=== PATIENT | female | born 1940 | race Caucasian/White ===

== ENCOUNTER 2016-06-08 22:09 | Emergency (ER) | payer OTHER ==
[~2016-06-08] VITALS: Ht 170.2 cm; Wt 77.1 kg
[~2016-06-08 22:09] MED LIST: HYDR50TA69; LOSA100T22; SERT-135
[2016-06-09] MEDS ORDERED: HYDROmorphone HCL 2 MG/ML VL IV ONE (00:30)
[2016-06-09] MEDS ORDERED: ONDANSETRON HCL 4 MG/2 ML VIAL IV ONE (00:30)
[2016-06-09 04:53] VITALS: BP 119/52
== END 2016-06-09 05:25 | disposition home or self-care (01) ==
LOC: EDBD 22:09 → ER 22:12
DX: S76.011A Strain of muscle, fascia and tendon of right hip, initial encounter (principal); J45.909 Unspecified asthma, uncomplicated; E78.5 Hyperlipidemia, unspecified; J44.9 Chronic obstructive pulmonary disease, unspecified; I10 Essential (primary) hypertension; Z96.641 Presence of right artificial hip joint; X58.XXXA Exposure to other specified factors, initial encounter; Y93.89 Activity, other specified; Y99.8 Other external cause status; Y92.89 Other specified places as the place of occurrence of the external cause
CPT/HCPCS: 73502; 96374; 96375; 99284; J1170; J2405

== ENCOUNTER → 2017-06-19 | Outpatient (CLI) | payer OTHER ==
[~2017-06-19] MED LIST changes: +FURO40TA4 PO; -HYDR50TA69; +HYDR50TA69 PO; +PANT40TA2 PO; -SERT-135; +SERT-135 PO
[2017-06-19 09:24] LABS: Basophils # (auto) 0 uL; Basophils % (auto) 0.6 % (0.0-2.0); Eosinophils # (auto) 0.1 uL; Eosinophils % (auto) 1.9 % (0.0-7.0); Hematocrit 39.6 % (36.0-46.0); Hemoglobin 13.7 g/dL (12.2-16.2); Lymphocytes # (auto) 1.2 uL; Lymphocytes % (auto) 30.2 % (10.0-50.0); Mean Corpuscular Hemoglobin 32.3 pg (28.0-32.0); Mean Corpuscular Hgb Conc. 34.4 g/dL (32.0-36.0); Mean Corpuscular Volume 93.7 fL (80.0-100.0); Monocytes # (auto) 0.4 uL; Monocytes % (auto) 10.6 % (0.0-12.0); Neutrophils # (auto) 2.2 uL; Neutrophils % (auto) 56.7 % (37.0-80.0); Platelet Count (auto) 209 10^3/uL (140-450); Red Blood Cells 4.23 10^6/uL (4.0-5.20); Red Cell Distribution Width 13.4 % (11.8-14.3); White Blood Cell 3.9 10^3/uL (4.4-10.8)
[2017-06-19 10:00] LABS: Urine Bacteria FEW /hpf (None Seen); Urine Blood Negative /uL (Negative); Urine Mucus FEW (None Seen); Urine Specific Gravity 1.012 (1.001-1.035); Urine WBC 2 /hpf (0 - 5)
[2017-06-19 10:41] LABS: Albumin 3.9 g/dL (3.4-5.0); BUN/Creatinine Ratio 25.9; Bilirubin, Total 1.1 mg/dL (0.2-1.0); Calcium 8.8 mg/dL (8.5-10.1); Total Protein 7.8 g/dL (6.4-8.2)
[2017-06-19 10:47] LABS: Potassium 2.7 mmol/L (3.5-5.1)
[2017-06-19 11:25] LABS: Free T4 (Free Thyroxine) 1.06 ng/dL (0.89-1.76)
== END | disposition home or self-care (01) ==
LOC: LAB 08:59
PROVIDERS: ATTEND Internal Medicine
DX: J44.9 Chronic obstructive pulmonary disease, unspecified (principal); I10 Essential (primary) hypertension
CPT/HCPCS: 36415; 80053; 80061; 81001; 82043; 82607; 83615; 84439; 84443; 85025; 85652

== ENCOUNTER 2017-06-20 09:15 | Inpatient (IN) | payer OTHER ==
[~2017-06-20] VITALS: Ht 157.5 cm; Wt 65.9 kg
[~2017-06-20 09:15] MED LIST changes: -FURO40TA4 PO; -PANT40TA2 PO
[2017-06-20 10:23] LABS: Basophils # (auto) 0 uL; Basophils % (auto) 0.6 % (0.0-2.0); Eosinophils # (auto) 0 uL; Eosinophils % (auto) 0.8 % (0.0-7.0); Hematocrit 40.8 % (36.0-46.0); Hemoglobin 13.9 g/dL (12.2-16.2); Lymphocytes # (auto) 1.3 uL; Lymphocytes % (auto) 21.1 % (10.0-50.0); Mean Corpuscular Hemoglobin 32.1 pg (28.0-32.0); Mean Corpuscular Volume 94.2 fL (80.0-100.0); Monocytes # (auto) 0.5 uL; Monocytes % (auto) 8.4 % (0.0-12.0); Neutrophils # (auto) 4.1 uL; Neutrophils % (auto) 69.1 % (37.0-80.0); Nucleated Red Blood Cells % 0.1 %; Platelet Count (auto) 242 10^3/uL (140-450); Red Blood Cells 4.33 10^6/uL (4.0-5.20); Red Cell Distribution Width 13.5 % (11.8-14.3)
[2017-06-20 10:37] LABS: INR 0.92 (0.9-1.15); Partial Thromboplastin Time 25.9 sec (22.64-33.71)
[2017-06-20 10:40] LABS: Alanine Aminotransferase 53 U/L (13-56); Albumin 3.9 g/dL (3.4-5.0); Alkaline Phosphatase 173 U/L (45-117); Anion Gap 13 (5-15); Aspartate Aminotransferase 45 U/L (15-37); BUN/Creatinine Ratio 29.1; Bilirubin, Total 0.9 mg/dL (0.2-1.0); Blood Urea Nitrogen 46 mg/dL (7-18); Calcium 8.6 mg/dL (8.5-10.1); Carbon Dioxide 25 mmol/L (21-32); Chloride 96 mmol/L (98-107); GFR African American 41 mL/min; GFR Non-African American 34 mL/min; Glucose 132 mg/dL (74-106); Magnesium 2.6 mg/dL (1.6-2.6); Sodium 134 mmol/L (136-145); Total Protein 7.9 g/dL (6.4-8.2)
[2017-06-20 10:42] LABS: Potassium 2.5 mmol/L (3.5-5.1)
[2017-06-20] MEDS ORDERED: SODIUM CHLORIDE 0.9% 1,000 ML IV ONE (11:14)
[2017-06-20] MEDS ORDERED: POTASSIUM CHL 20 Meq TABLET PO ONE ×2 (11:15→15:45)
[2017-06-20] MEDS ORDERED: metroNIDAZOLE 500MG/100ML 100 ML IV ONE (14:45)
[2017-06-20] MEDS ORDERED: MORPHINE SULFATE 10 MG/ML INJ 1ML SDV IV PRN (15:45)
[2017-06-20] MEDS ORDERED: cefTRIAXone 1GM/10ml IVPUSH 10 ML IV ONE (15:45)
[2017-06-20] MEDS ORDERED: LORazepam 0.5 MG TAB PO PRN (15:45)
[2017-06-20] MEDS ORDERED: HYDROcodone-ACET 5/325MG TAB PO PRN (15:45)
[2017-06-20] MEDS ORDERED: TEMAZEPAM 15 MG CAP PO PRN (15:45)
[2017-06-20] MEDS ORDERED: DEXTROSE (50%) 50ML SYRG IV PRN (15:45)
[2017-06-20] MEDS ORDERED: NITROGLYCERIN 0.4 MG SL TAB SL PRN (15:45)
[2017-06-20] MEDS ORDERED: PROMETHAZINE HCL 25 MG/ML 1ML IV PRN (15:45)
[2017-06-20] MEDS ORDERED: ACETAMINOPHEN 500 MG TAB PO PRN (15:45)
[2017-06-20] MEDS ORDERED: MORPHINE SULF INJ 2 MG/ML SYRINGE 1ML IV PRN (15:45)
[2017-06-20 16:14] LABS: CRP High Sensitivity 0.61 mg/dL (< 0.3)
[2017-06-20] MEDS: metroNIDAZOLE 500MG/100ML 100 ML IV SCH ×2 (16:42→23:56)
[2017-06-20] MEDS: SOD CHL 0.9%/ KCL 40MEQ 1,000 ML IV SCH (17:02)
[2017-06-20] MEDS: FAMOTIDINE (10MG/ML) 2ML VL IV SCH (17:03)
[2017-06-20] MEDS: POTASSIUM CHL 20MEQ/100ML 100 ML IV SCH ×3 (17:51→23:48)
[2017-06-20 18:37] LABS: Urine Bacteria FEW /hpf (None Seen); Urine Blood Negative /uL (Negative); Urine Mucus FEW (None Seen); Urine Specific Gravity 1.014 (1.001-1.035); Urine WBC 4 /hpf (0 - 5)
[2017-06-20] MEDS: ACCU-CHEK COMFORT CURVE STRIP VI SCH (18:45)
[2017-06-20] MEDS ORDERED: PANT40TA2 PO (20:19)
[2017-06-20] MEDS ORDERED: FURO40TA4 PO (20:19)
[2017-06-20 22:00] VITALS: BP 117/58
[2017-06-21] MEDS: ACCU-CHEK COMFORT CURVE STRIP VI SCH ×3 (00:02→12:00)
[2017-06-21] MEDS ORDERED: POTASSIUM CHL 20MEQ/100ML 100 ML IV ONE (02:29)
[2017-06-21] MEDS: POTASSIUM CHL 20MEQ/100ML 100 ML IV SCH (02:30)
[2017-06-21] MEDS: SOD CHL 0.9%/ KCL 40MEQ 1,000 ML IV SCH ×2 (03:05→11:55)
[2017-06-21 05:00] VITALS: BP 109/56
[2017-06-21] MEDS: metroNIDAZOLE 500MG/100ML 100 ML IV SCH ×2 (05:55→12:18)
[2017-06-21 07:03] LABS: Albumin 2.8 g/dL (3.4-5.0); BUN/Creatinine Ratio 24.8; Bilirubin, Total 0.6 mg/dL (0.2-1.0); Calcium 7.3 mg/dL (8.5-10.1); Total Protein 5.6 g/dL (6.4-8.2)
[2017-06-21 07:04] LABS: Cholesterol 163 mg/dL (< 200); HDL Cholesterol 76 mg/dL (40-59); LDL Cholesterol 91 mg/dL (< 100); Triglycerides 78 mg/dL (< 150)
[2017-06-21 07:07] LABS: Potassium 5.6 mmol/L (3.5-5.1)
[2017-06-21] MEDS ORDERED: HYOSCYAMINE SULF 0.125 MG TAB PO PRN (08:45)
[2017-06-21] MEDS ORDERED: cefTRIAXone 1GM/10ml IVPUSH 10 ML IV SCH (09:00)
[2017-06-21 09:43] VITALS: BP 106/63
[2017-06-21] MEDS: FAMOTIDINE (10MG/ML) 2ML VL IV SCH (09:43)
[2017-06-21] MEDS ORDERED: ENOXAPARIN SOD 40 MG/0.4 ML SYRINGE SC SCH (10:00)
[2017-06-21 11:43] VITALS: BP 123/56
== END 2017-06-21 16:30 | disposition home or self-care (01) | DRG 445 ==
LOC: ER 09:15 → TELE 09:16 → TELE-WESTW 18:31
PROVIDERS: ADMIT Internal Medicine; ATTEND Family Medicine
DX: K80.20 Calculus of gallbladder without cholecystitis without obstruction (principal); E87.1 Hypo-osmolality and hyponatremia; E11.21 Type 2 diabetes mellitus with diabetic nephropathy; E11.65 Type 2 diabetes mellitus with hyperglycemia; E86.0 Dehydration; K52.9 Noninfective gastroenteritis and colitis, unspecified; K57.30 Diverticulosis of large intestine without perforation or abscess without bleeding; E78.5 Hyperlipidemia, unspecified; F32.9 Major depressive disorder, single episode, unspecified; E87.6 Hypokalemia; F41.9 Anxiety disorder, unspecified; I10 Essential (primary) hypertension; I70.0 Atherosclerosis of aorta; Z80.0 Family history of malignant neoplasm of digestive organs; Z82.49 Family history of ischemic heart disease and other diseases of the circulatory system; Z83.3 Family history of diabetes mellitus; Z85.038 Personal history of other malignant neoplasm of large intestine
CPT/HCPCS: 36415; 71046; 74176; 76705; 80053; 80061; 81001; 82150; 82270; 82962; 83036; 83690; 83735; 84132; 84443; 84484; 85025; 85610; 85652; 85730; 86141; 87493; 93005; 96361; 96365; 96367; 96375; J3480; J3490

== ENCOUNTER → 2018-06-05 | Outpatient (CLI) | payer OTHER ==
[~2018-06-05] MED LIST changes: +FURO40TA4 PO; -LOSA100T22; +PANT40TA2 PO
[2018-06-05 10:40] LABS: Basophils # (auto) 0.1 uL; Eosinophils # (auto) 0.1 uL; Monocytes # (auto) 0.5 uL
[2018-06-05 10:42] LABS: Basophils % (auto) 1.2 % (0.0-2.0); Eosinophils % (auto) 1.4 % (0.0-7.0); Hemoglobin 14.6 g/dL (12.2-16.2); Lymphocytes # (auto) 1.6 uL; Lymphocytes % (auto) 30.2 % (10.0-50.0); Mean Corpuscular Hemoglobin 34.7 pg (28.0-32.0); Mean Corpuscular Hgb Conc. 34.7 g/dL (32.0-36.0); Mean Corpuscular Volume 100.1 fL (80.0-100.0); Monocytes % (auto) 9.3 % (0.0-12.0); Neutrophils # (auto) 3.1 uL; Neutrophils % (auto) 57.9 % (37.0-80.0); Platelet Count (auto) 250 10^3/uL (140-450); Red Cell Distribution Width 13.5 % (11.8-14.3); White Blood Cell 5.3 10^3/uL (4.4-10.8)
[2018-06-05 10:56] LABS: Urine Bacteria FEW /hpf (None Seen); Urine Blood Negative /uL (Negative); Urine Specific Gravity 1.014 (1.001-1.035); Urine WBC <1 /hpf (0 - 5)
[2018-06-05 11:12] LABS: Albumin 3.9 g/dL (3.4-5.0); BUN/Creatinine Ratio 17.7; Calcium 8.8 mg/dL (8.5-10.1); Uric Acid 8.9 mg/dL (2.6-6.0)
[2018-06-05 11:16] LABS: Bilirubin, Total 1.3 mg/dL (0.2-1.0); Total Protein 7.6 g/dL (6.4-8.2)
[2018-06-05 11:26] LABS: Potassium 2.6 mmol/L (3.5-5.1)
== END | disposition home or self-care (01) ==
LOC: LAB 10:19
PROVIDERS: ATTEND Internal Medicine
DX: J44.9 Chronic obstructive pulmonary disease, unspecified (principal); I10 Essential (primary) hypertension; M25.50 Pain in unspecified joint
CPT/HCPCS: 36415; 80053; 80061; 81001; 82043; 84439; 84443; 84550; 85025; 85652; 86038; 86431

== ENCOUNTER → 2018-06-07 | Outpatient (CLI) | payer OTHER ==
[2018-06-07 10:19] LABS: Magnesium 2.1 mg/dL (1.6-2.6); Potassium 3.8 mmol/L (3.5-5.1)
== END | disposition home or self-care (01) ==
LOC: LAB 09:48
PROVIDERS: ATTEND Internal Medicine
DX: E87.6 Hypokalemia (principal)
CPT/HCPCS: 36415; 83735; 84132

== ENCOUNTER → 2018-06-26 | Outpatient (CLI) | payer OTHER ==
[2018-06-26 13:57] LABS: Basophils # (auto) 0 uL; Eosinophils # (auto) 0 uL; Hemoglobin 14.6 g/dL (12.2-16.2); Lymphocytes # (auto) 1.1 uL; Mean Corpuscular Hgb Conc. 35.1 g/dL (32.0-36.0); Monocytes # (auto) 0.5 uL
[2018-06-26 13:59] LABS: Basophils % (auto) 0.6 % (0.0-2.0); Eosinophils % (auto) 0.6 % (0.0-7.0); Hematocrit 41.6 % (36.0-46.0); Lymphocytes % (auto) 22.2 % (10.0-50.0); Mean Corpuscular Hemoglobin 35.7 pg (28.0-32.0); Mean Corpuscular Volume 101.6 fL (80.0-100.0); Monocytes % (auto) 10.6 % (0.0-12.0); Neutrophils # (auto) 3.4 uL; Platelet Count (auto) 227 10^3/uL (140-450); Red Blood Cells 4.09 10^6/uL (4.0-5.20); Red Cell Distribution Width 13.4 % (11.8-14.3); White Blood Cell 5.1 10^3/uL (4.4-10.8)
[2018-06-26 14:09] LABS: Potassium 3.4 mmol/L (3.5-5.1)
[2018-06-26 14:16] LABS: Albumin 4.1 g/dL (3.4-5.0); BUN/Creatinine Ratio 15.3; Bilirubin, Total 0.9 mg/dL (0.2-1.0); Calcium 9.1 mg/dL (8.5-10.1); Magnesium 2.1 mg/dL (1.6-2.6); Total Protein 7.8 g/dL (6.4-8.2)
== END | disposition home or self-care (01) ==
LOC: LAB 13:23
PROVIDERS: ATTEND Internal Medicine
DX: I11.0 Hypertensive heart disease with heart failure (principal); I50.9 Heart failure, unspecified
CPT/HCPCS: 36415; 80053; 83735; 83880; 85025

== ENCOUNTER → 2018-07-03 | Outpatient (CLI) | payer OTHER ==
[2018-07-03 13:30] LABS: Albumin 3.5 g/dL (3.4-5.0); Calcium 8.7 mg/dL (8.5-10.1); Potassium 4.5 mmol/L (3.5-5.1)
[2018-07-03 13:33] LABS: BUN/Creatinine Ratio 16.5; Bilirubin, Total 0.7 mg/dL (0.2-1.0); Total Protein 6.9 g/dL (6.4-8.2)
== END | disposition home or self-care (01) ==
LOC: LAB 12:20
PROVIDERS: ATTEND Internal Medicine
DX: R73.9 Hyperglycemia, unspecified (principal); I12.9 Hypertensive chronic kidney disease with stage 1 through stage 4 chronic kidney disease, or unspecified chronic kidney disease; N18.3 Chronic kidney disease, stage 3 (moderate)
CPT/HCPCS: 36415; 80053; 83036

== ENCOUNTER → 2018-07-09 | Outpatient (CLI) | payer OTHER | END | disposition home or self-care (01) | LOC: LAB 13:14 | PROVIDERS: ATTEND Internal Medicine | DX: J44.1 Chronic obstructive pulmonary disease with (acute) exacerbation (principal) | CPT/HCPCS: 87804 ==

== ENCOUNTER → 2018-07-09 | Outpatient (CLI) | payer OTHER | END | disposition home or self-care (01) | LOC: RT 12:22 | PROVIDERS: ATTEND Internal Medicine | DX: J44.1 Chronic obstructive pulmonary disease with (acute) exacerbation (principal) | CPT/HCPCS: 36600; 82805 ==

== ENCOUNTER → 2018-07-25 | Outpatient (CLI) | payer OTHER | END | disposition home or self-care (01) | LOC: XYW 11:08 | PROVIDERS: ATTEND Internal Medicine | DX: I50.9 Heart failure, unspecified (principal); J44.9 Chronic obstructive pulmonary disease, unspecified | CPT/HCPCS: 93306 ==

== ENCOUNTER → 2018-09-25 | Outpatient (CLI) | payer OTHER ==
[~2018-09-25] VITALS: Ht 157.5 cm; Wt 70.3 kg
[~2018-09-25] MED LIST changes: +ADENOSINE 59 MG in GIVE UN-DILUTED 0 ML IV STA; +ALBUTEROL SULF 2.5 MG/0.5ML(0.5%) NEB SOLN NEB ONE
== END | disposition home or self-care (01) ==
LOC: XY 08:35
PROVIDERS: ATTEND Internal Medicine
DX: I11.0 Hypertensive heart disease with heart failure (principal); I50.33 Acute on chronic diastolic (congestive) heart failure
CPT/HCPCS: 78452; 93017; 94640; A9500; J0153; J7611

== ENCOUNTER 2018-11-26 12:01 | Emergency (ER) | payer OTHER ==
[~2018-11-26] VITALS: Ht 157.5 cm; Wt 70.3 kg
[~2018-11-26 12:01] MED LIST changes: -ADENOSINE 59 MG in GIVE UN-DILUTED 0 ML IV STA; -ALBUTEROL SULF 2.5 MG/0.5ML(0.5%) NEB SOLN NEB ONE
[2018-11-26 13:02] VITALS: BP 145/89
[2018-11-26] MEDS ORDERED: KETOROLAC TROMETH 15 mg/ml 1ML VL IM ONE (13:15)
[2018-11-26 14:26] LABS: Urine Bacteria NONE SEEN /hpf (None Seen); Urine Blood Negative /uL (Negative); Urine Specific Gravity 1.008 (1.001-1.035); Urine WBC 1 /hpf (0 - 5)
== END 2018-11-26 14:17 | disposition home or self-care (01) ==
LOC: ER 12:04
DX: S22.41XA Multiple fractures of ribs, right side, initial encounter for closed fracture (principal); J44.9 Chronic obstructive pulmonary disease, unspecified; K21.9 Gastro-esophageal reflux disease without esophagitis; E78.5 Hyperlipidemia, unspecified; I10 Essential (primary) hypertension; W19.XXXA Unspecified fall, initial encounter; Y93.89 Activity, other specified; Y99.8 Other external cause status; Y92.89 Other specified places as the place of occurrence of the external cause
CPT/HCPCS: 71111; 81001; 93005; 96372; 99284; J1885

== ENCOUNTER → 2019-01-21 | Outpatient (CLI) | payer OTHER ==
[~2019-01-21] MED LIST changes: -SERT-135 PO; +SERT100T PO
[2019-01-21 09:46] LABS: Basophils # (auto) 0.1 uL; Basophils % (auto) 1.3 % (0.0-2.0); Eosinophils # (auto) 0.4 uL; Lymphocytes # (auto) 1.3 uL; Mean Corpuscular Volume 100.7 fL (80.0-100.0); Red Cell Distribution Width 13.7 % (11.8-14.3)
[2019-01-21 09:48] LABS: Eosinophils % (auto) 8.2 % (0.0-7.0); Hematocrit 42.3 % (36.0-46.0); Hemoglobin 14.7 g/dL (12.2-16.2); Lymphocytes % (auto) 29.1 % (10.0-50.0); Mean Corpuscular Hgb Conc. 34.7 g/dL (32.0-36.0); Monocytes # (auto) 0.4 uL; Monocytes % (auto) 8.6 % (0.0-12.0); Neutrophils # (auto) 2.4 uL; Neutrophils % (auto) 52.8 % (37.0-80.0); Nucleated Red Blood Cells % 0.1 %; Platelet Count (auto) 194 10^3/uL (140-450); White Blood Cell 4.6 10^3/uL (4.4-10.8)
[2019-01-21 10:53] LABS: BUN/Creatinine Ratio 15.3; Calcium 9.4 mg/dL (8.5-10.1)
[2019-01-21 10:56] LABS: Bilirubin, Total 1.2 mg/dL (0.2-1.0); Total Protein 7.4 g/dL (6.4-8.2)
== END | disposition home or self-care (01) ==
LOC: LAB 08:55
PROVIDERS: ATTEND Internal Medicine
DX: J44.9 Chronic obstructive pulmonary disease, unspecified (principal); E78.00 Pure hypercholesterolemia, unspecified
CPT/HCPCS: 36415; 80053; 80061; 82785; 85025

== ENCOUNTER 2019-01-31 01:00 | Inpatient (IN) | payer OTHER | END 2019-02-07 15:04 | disposition home health service (06) | LOC: WEST WING 02-06 09:47 → ER 01:00 → TELE 01:01 → TELE-WESTW 06:33 | DX: J44.1 Chronic obstructive pulmonary disease with (acute) exacerbation (principal); J96.20 Acute and chronic respiratory failure, unspecified whether with hypoxia or hypercapnia; E78.5 Hyperlipidemia, unspecified; I10 Essential (primary) hypertension; K21.9 Gastro-esophageal reflux disease without esophagitis ==

== ENCOUNTER → 2019-06-25 | Outpatient (CLI) | payer OTHER ==
[~2019-06-25] MED LIST changes: +ASPI81CH43 PO; +ATOR20TA50 PO; +HYDR-2691 PO; +PANT40T PO; +POTA-220 PO
[2019-06-25 11:56] LABS: Potassium 3.8 mmol/L (3.5-5.1)
[2019-06-25 12:04] LABS: Albumin 3.9 g/dL (3.4-5.0); BUN/Creatinine Ratio 14.7; Bilirubin, Total 0.7 mg/dL (0.2-1.0); Calcium 9.6 mg/dL (8.5-10.1); Total Protein 7.6 g/dL (6.4-8.2)
== END | disposition home or self-care (01) ==
LOC: LAB 10:40
PROVIDERS: ATTEND Internal Medicine
DX: J44.9 Chronic obstructive pulmonary disease, unspecified (principal); E78.00 Pure hypercholesterolemia, unspecified
CPT/HCPCS: 36415; 80053; 80061; 82607

== ENCOUNTER 2019-07-09 11:27 | Inpatient (IN) | payer OTHER ==
[~2019-07-09] VITALS: Ht 157.5 cm; Wt 68.3 kg
[2019-07-09] MEDS ORDERED: SODIUM CHLORIDE 0.9% 1,000 ML IV ONE (11:36)
[2019-07-09] MEDS ORDERED: IPRATROPIUM BROM 0.5 MG/2.5ML INH SOL NEB ONE (11:45)
[2019-07-09] MEDS ORDERED: ALBUTEROL SULF 2.5 MG/0.5ML(0.5%) NEB SOLN NEB ONE (11:45)
[2019-07-09] MEDS ORDERED: methylPREDNISolone SOD SUCC 125 MG/2 ML VL IV ONE (11:45)
[2019-07-09 12:02] LABS: Basophils # (auto) 0.1 uL; Basophils % (auto) 1.1 % (0.0-2.0); Eosinophils # (auto) 0.5 uL; Eosinophils % (auto) 6.4 % (0.0-7.0); Hematocrit 43.1 % (36.0-46.0); Hemoglobin 14.4 g/dL (12.2-16.2); Lymphocytes # (auto) 1.8 uL; Lymphocytes % (auto) 21.3 % (10.0-50.0); Mean Corpuscular Hemoglobin 31.7 pg (28.0-32.0); Mean Corpuscular Hgb Conc. 33.3 g/dL (32.0-36.0); Mean Corpuscular Volume 95.1 fL (80.0-100.0); Monocytes # (auto) 0.7 uL; Monocytes % (auto) 8.7 % (0.0-12.0); Neutrophils # (auto) 5.3 uL; Neutrophils % (auto) 62.5 % (37.0-80.0); Platelet Count (auto) 235 10^3/uL (140-450); Red Blood Cells 4.53 10^6/uL (4.0-5.20); Red Cell Distribution Width 13.9 % (11.8-14.3); White Blood Cell 8.5 10^3/uL (4.4-10.8)
[2019-07-09 12:27] LABS: Potassium 4.3 mmol/L (3.5-5.1)
[2019-07-09 12:33] LABS: Albumin 4.2 g/dL (3.4-5.0); BUN/Creatinine Ratio 13.4; Calcium 9.6 mg/dL (8.5-10.1); Magnesium 2.2 mg/dL (1.6-2.6); Total Protein 7.6 g/dL (6.4-8.2)
[2019-07-09 13:08] LABS: Urine WBC None Seen /hpf (0 - 5)
[2019-07-09 13:17] LABS: Urine Bacteria NONE SEEN /hpf (None Seen); Urine Blood Negative /uL (Negative); Urine Hyaline Cast FEW /lpf (0 - 2); Urine Specific Gravity 1.008 (1.001-1.035)
[2019-07-09] MEDS ORDERED: LOSA-69 (15:46)
[2019-07-09] MEDS ORDERED: TORS10TA12 (15:46)
[2019-07-09] MEDS ORDERED: ALBU108A5 (15:46)
[2019-07-09] MEDS ORDERED: ACETAMINOPHEN 500 MG TAB PO PRN (16:15)
[2019-07-09] MEDS ORDERED: ASPirin 81 mg TAB PO ONE (16:15)
[2019-07-09] MEDS ORDERED: hydrALAZINE HCL 20 MG/ML VL IV PRN (16:15)
[2019-07-09] MEDS ORDERED: ONDANSETRON HCL 4 MG/2 ML VIAL IV PRN (16:15)
[2019-07-09] MEDS ORDERED: HYDROcodone-ACET 5/325MG TAB PO PRN (16:15)
[2019-07-09] MEDS ORDERED: MORPHINE SULF INJ 2 MG/ML SYRINGE 1ML IV PRN ×2 (16:15)
[2019-07-09] MEDS ORDERED: NITROGLYCERIN 0.4 MG SL TAB SL PRN (16:15)
--- NOTE | 2019-07-09 18:54 | NUR ---
Telemetry admit from ER YOSELINFREDRICK admitted to Telemetry unit after SBAR received. Patient oriented to SANDRITA HOPKINS, primary RN, unit, room, bed, and unit policies regarding patient care and visiting hours. Patient now on continuous telemetry monitoring, tele box # 26. Patient weighed by bedscale and encouraged to call if they need something. All questions and concerns addressed, patient verbalized understanding. Patient has expiratory wheezing with tachypnea. Voice is clear when speaking. She is alert and oriented. Ambulatory. No skin issues. Currently sitting on the side of the bed eating dinner.
[2019-07-09 19:00] VITALS: BP 161/97
--- NOTE | 2019-07-09 19:05 | NUR ---
Opening Shift Note Assumed care of patient, awake and alert. No pain. Wheezing audible upon breathing, O2 saturation at 94% at this time on room air. Will contact RT regarding breathing treatment. Instructed on POC and to call for assist PRN, will continue to monitor for changes Q1hr and PRN. Side rails up x2. Bed locked in lowest position. Call light within reach.
--- NOTE | 2019-07-09 19:50 | NUR ---
RT at bedside for a breathing treatment.
[2019-07-09] MEDS: ALBUTEROL SULF 2.5 MG/0.5ML(0.5%) NEB SOLN NEB SCH ×2 (19:51→22:22)
[2019-07-09] MEDS: IPRATROPIUM BROM 0.5 MG/2.5ML INH SOL NEB SCH ×2 (19:51→22:22)
[2019-07-09] MEDS: BUDESONIDE (INHALATION) 0.5 MG/2 ML NEB NEB SCH (19:52)
[2019-07-09 21:16] VITALS: BP 161/97
[2019-07-09 21:52] VITALS: BP 129/76
[2019-07-09] MEDS ORDERED: TORS10TA12 PO (22:04)
[2019-07-09] MEDS: ATORVASTATIN 20 MG TAB PO SCH (22:26)
[2019-07-09] MEDS: methylPREDNISolone SOD SUCC 40 MG/ML VL IV SCH (22:26)
[2019-07-09] MEDS ORDERED: TEMAZEPAM 15 MG CAP PO ONE (22:45)
[2019-07-09] MEDS ORDERED: ALBUTEROL SULF 2.5 MG/0.5ML(0.5%) NEB SOLN NEB PRN (22:45)
[2019-07-10 05:00] VITALS: BP 132/72
[2019-07-10 06:12] LABS: Basophils # (auto) 0 uL; Basophils % (auto) 0.1 % (0.0-2.0); Eosinophils # (auto) 0 uL; Hematocrit 36.8 % (36.0-46.0); Hemoglobin 12.6 g/dL (12.2-16.2); Lymphocytes # (auto) 0.3 uL; Lymphocytes % (auto) 7.5 % (10.0-50.0); Mean Corpuscular Hemoglobin 32.5 pg (28.0-32.0); Mean Corpuscular Hgb Conc. 34.1 g/dL (32.0-36.0); Mean Corpuscular Volume 95.4 fL (80.0-100.0); Monocytes # (auto) 0.1 uL; Monocytes % (auto) 1.3 % (0.0-12.0); Neutrophils % (auto) 91.1 % (37.0-80.0); Platelet Count (auto) 154 10^3/uL (140-450); Red Blood Cells 3.86 10^6/uL (4.0-5.20); Red Cell Distribution Width 13.3 % (11.8-14.3); White Blood Cell 4.4 10^3/uL (4.4-10.8)
[2019-07-10 06:30] LABS: INR 1.01 (0.9-1.15); Partial Thromboplastin Time 23.9 sec (23.64-32.05)
[2019-07-10 06:35] LABS: BUN/Creatinine Ratio 18.9; Calcium 8.7 mg/dL (8.5-10.1); Potassium 3.9 mmol/L (3.5-5.1)
[2019-07-10] MEDS: BUDESONIDE (INHALATION) 0.5 MG/2 ML NEB NEB SCH ×2 (07:15→23:00)
[2019-07-10] MEDS: ALBUTEROL SULF 2.5 MG/0.5ML(0.5%) NEB SOLN NEB SCH ×5 (07:15→23:00)
[2019-07-10] MEDS: IPRATROPIUM BROM 0.5 MG/2.5ML INH SOL NEB SCH ×5 (07:15→23:00)
[2019-07-10] MEDS ORDERED: ADENOSINE 58 MG in GIVE UN-DILUTED 0 ML IV STA (08:12)
[2019-07-10 09:00] VITALS: BP 104/59
[2019-07-10] MEDS: FAMOTIDINE 20 MG TAB PO SCH (10:00)
[2019-07-10] MEDS: ASPirin-EC 81 mg tab PO SCH (10:00)
[2019-07-10] MEDS ORDERED: LOSARTAN POTASSIUM 50 MG TAB PO SCH (10:00)
[2019-07-10] MEDS: methylPREDNISolone SOD SUCC 40 MG/ML VL IV SCH ×2 (12:31→21:26)
[2019-07-10] MEDS: SERTRALINE HCL 50 MG TAB PO SCH (12:32)
[2019-07-10] MEDS ORDERED: FUROSEMIDE 40 MG/4 ML VIAL IV ONE (13:00)
[2019-07-10 13:16] VITALS: BP 142/71
[2019-07-10 16:39] VITALS: BP 149/84
--- NOTE | 2019-07-10 20:00 | NUR ---
Opening Shift Note Assumed care of patient, awake and alert. No S/S of distress/SOB or pain. Instructed on POC and to call for assist PRN, will continue to monitor for changes Q1hr and PRN.
[2019-07-10] MEDS: ATORVASTATIN 20 MG TAB PO SCH (21:26)
[2019-07-10 21:43] VITALS: BP 140/68
--- NOTE | 2019-07-11 02:00 | NUR ---
Paged for sleeping pill with order of restoril 15mg.p.o x one at 0238 time when responded.
[2019-07-11] MEDS ORDERED: TEMAZEPAM 15 MG CAP PO ONE (02:45)
--- NOTE | 2019-07-11 02:45 | NUR ---
Patient seen sleeping already.
[2019-07-11 04:40] VITALS: BP 159/93
[2019-07-11 06:47] LABS: BUN/Creatinine Ratio 23.8; Potassium 3.8 mmol/L (3.5-5.1)
--- NOTE | 2019-07-11 07:26 | NUR ---
Report given to Chapis Reaves, patient is resting no distress.
--- NOTE | 2019-07-11 07:45 | NUR ---
Patient sitting up in bed, wheezing noted. Patient refused O2 via nasal cannula. No acute distress noted. Patient waiting for the doctor, stated she wants to go home today.
--- NOTE | 2019-07-11 07:50 | NUR ---
Patient has coughing.
[2019-07-11] MEDS: methylPREDNISolone SOD SUCC 40 MG/ML VL IV SCH (08:48)
--- NOTE | 2019-07-11 08:48 | NUR ---
Respiratory Therapist requested if patient can have the Solu Medrol now for patient's breathing treatment. Patient has wheezing.
[2019-07-11 09:00] VITALS: BP 126/72
[2019-07-11] MEDS: SERTRALINE HCL 50 MG TAB PO SCH (09:42)
--- NOTE | 2019-07-11 09:42 | NUR ---
Patient refused Aspirin and Famotidine. Patient has coughing. Patient stated she takes Robitussin for cough at home. Will inform the MD.
[2019-07-11] MEDS: FAMOTIDINE 20 MG TAB PO SCH (09:43)
[2019-07-11] MEDS: ASPirin-EC 81 mg tab PO SCH (09:44)
--- NOTE | 2019-07-11 09:44 | NUR ---
Patient will have breathing treatment at this time as per respiratory Therapist (RT).
[2019-07-11] MEDS: ALBUTEROL SULF 2.5 MG/0.5ML(0.5%) NEB SOLN NEB SCH ×2 (09:54→09:55)
[2019-07-11] MEDS: BUDESONIDE (INHALATION) 0.5 MG/2 ML NEB NEB SCH (09:54)
[2019-07-11] MEDS: IPRATROPIUM BROM 0.5 MG/2.5ML INH SOL NEB SCH ×2 (09:54→09:55)
--- NOTE | 2019-07-11 10:38 | NUR ---
Received a call back from [facility] that patient's heart rate in the 30s to 40s. Informed the [employer] that patient is at [facility] at this time for Stress Test. Addendum: 07/11/19 at 1039 by Jelly Bhagat RN WRONG ENTRY
--- NOTE | 2019-07-11 10:38 | NUR ---
Patient in bed, awake, no acute distress noted.
--- NOTE | 2019-07-11 11:32 | NUR ---
Dr. Zavaleta came over to see the patient. MD to put in discharge orders for today.
[2019-07-11] MEDS ORDERED: FUROSEMIDE 40 MG/4 ML VIAL IV SCH (11:45)
[2019-07-11 12:44] VITALS: BP 126/72
[2019-07-11 13:10] VITALS: BP 126/72
--- NOTE | 2019-07-11 13:20 | NUR ---
Patient stated her car is parked at the ER parking area. Patient denies pain. No pain medication given.
--- NOTE | 2019-07-11 13:40 | NUR ---
Discharge instructions given as ordered. Encourage to follow up with PMD as instructed. All questions and concerns addressed. Patient verbalized understanding. Medication reconciliation form completed and copy given to patient. IV removed with catheter intact, pressure dressing applied. Telemetry unit returned to ICU. Patient taken to vehicle via wheelchair to ER parking area, patient with all personal belongings, accompanied by staff. Patient is driving her car. No dizziness. Patient alert, oriented x4. No distress noted at time of departure.
--- NOTE | 2019-07-11 16:53 | NUR ---
assessment Patient discharged home prior to being assessed. Addendum: 07/11/19 at 1653 by Malathi TATUM Amended: Links added.
== END 2019-07-11 13:40 | disposition home or self-care (01) | DRG 280 ==
LOC: ER 11:27 → TELE 11:28 → TELE-CENTR 18:41
PROVIDERS: ADMIT Nurse Practitioner Acute Care; ATTEND Internal Medicine
DX: I13.0 Hypertensive heart and chronic kidney disease with heart failure and stage 1 through stage 4 chronic kidney disease, or unspecified chronic kidney disease (principal); J96.01 Acute respiratory failure with hypoxia; I21.4 Non-ST elevation (NSTEMI) myocardial infarction; I50.43 Acute on chronic combined systolic (congestive) and diastolic (congestive) heart failure; J44.1 Chronic obstructive pulmonary disease with (acute) exacerbation; N18.3 Chronic kidney disease, stage 3 (moderate); M81.0 Age-related osteoporosis without current pathological fracture; M19.90 Unspecified osteoarthritis, unspecified site; I65.29 Occlusion and stenosis of unspecified carotid artery; K21.9 Gastro-esophageal reflux disease without esophagitis; E78.5 Hyperlipidemia, unspecified; Z96.649 Presence of unspecified artificial hip joint; F32.9 Major depressive disorder, single episode, unspecified; Z90.49 Acquired absence of other specified parts of digestive tract; Z79.899 Other long term (current) drug therapy; Z79.82 Long term (current) use of aspirin; Z79.51 Long term (current) use of inhaled steroids; Z80.0 Family history of malignant neoplasm of digestive organs; Z80.1 Family history of malignant neoplasm of trachea, bronchus and lung; Z83.511 Family history of glaucoma; Z82.49 Family history of ischemic heart disease and other diseases of the circulatory system
CPT/HCPCS: 36415; 71045; 71046; 78452; 80048; 80053; 81001; 83735; 84443; 84484; 85025; 85610; 85730; 86141; 87804; 93005; 93017; 93306; 94640; G0378; J0153

== ENCOUNTER → 2020-03-12 | Outpatient (CLI) | payer OTHER ==
[~2020-03-12] MED LIST changes: +ALBU108A5; -FURO40TA4 PO; -HYDR50TA69 PO; +LOSA-69; -PANT40TA2 PO; +TORS10TA12 PO
[2020-03-12 10:38] LABS: Basophils # (auto) 0 10 ^3/uL (0-0.2); Basophils % (auto) 0.8 % (0.0-2.0); Eosinophils # (auto) 0.1 10 ^3/uL (0-0.8); Eosinophils % (auto) 1.9 % (0.0-7.0); Hematocrit 40.8 % (36.0-46.0); Hemoglobin 13.6 g/dL (12.2-16.2); Lymphocytes # (auto) 1.3 10 ^3/uL (0.4-5.4); Lymphocytes % (auto) 27.7 % (10.0-50.0); Mean Corpuscular Hemoglobin 33.9 pg (28.0-32.0); Mean Corpuscular Hgb Conc. 33.5 g/dL (32.0-36.0); Mean Corpuscular Volume 101.2 fL (80.0-100.0); Monocytes # (auto) 0.4 10 ^3/uL (0-1.3); Monocytes % (auto) 9.4 % (0.0-12.0); Neutrophils # (auto) 2.8 10 ^3/uL (1.6-8.6); Neutrophils % (auto) 60.2 % (37.0-80.0); Platelet Count (auto) 182 10^3/uL (140-450); Red Blood Cells 4.03 10^6/uL (4.0-5.20); Red Cell Distribution Width 15.9 % (11.8-14.3); White Blood Cell 4.7 10^3/uL (4.4-10.8)
[2020-03-12 11:07] LABS: Albumin 3.9 g/dL (3.4-5.0); Calcium 9.2 mg/dL (8.5-10.1); Potassium 3.9 mmol/L (3.5-5.1)
[2020-03-12 11:11] LABS: BUN/Creatinine Ratio 16.7; Bilirubin, Total 0.9 mg/dL (0.2-1.0); Total Protein 7.2 g/dL (6.4-8.2); Uric Acid 5.9 mg/dL (2.6-6.0)
== END | disposition home or self-care (01) ==
LOC: LAB 10:18
PROVIDERS: ATTEND Internal Medicine
DX: I12.9 Hypertensive chronic kidney disease with stage 1 through stage 4 chronic kidney disease, or unspecified chronic kidney disease (principal); N18.30 Chronic kidney disease, stage 3 unspecified
CPT/HCPCS: 36415; 80053; 84550; 85025

== ENCOUNTER → 2022-01-26 | Outpatient (CLI) | payer OTHER ==
[~2022-01-26] MED LIST changes: -HYDR-2691 PO; +HYDR25TA87 PO
[2022-01-26 10:29] LABS: Basophils # (auto) 0 10 ^3/uL (0-0.2); Eosinophils # (auto) 0.1 10 ^3/uL (0-0.8); Eosinophils % (auto) 2.1 % (0.0-7.0); Hematocrit 41.6 % (36.0-46.0); Hemoglobin 13.8 g/dL (12.2-16.2); Lymphocytes # (auto) 0.9 10 ^3/uL (0.4-5.4); Lymphocytes % (auto) 24.7 % (10.0-50.0); Mean Corpuscular Hemoglobin 33.3 pg (28.0-32.0); Mean Corpuscular Hgb Conc. 33.3 g/dL (32.0-36.0); Monocytes # (auto) 0.4 10 ^3/uL (0-1.3); Monocytes % (auto) 9.7 % (0.0-12.0); Neutrophils # (auto) 2.3 10 ^3/uL (1.6-8.6); Neutrophils % (auto) 62.5 % (37.0-80.0); Nucleated Red Blood Cells % 0.1 %; Red Blood Cells 4.16 10^6/uL (4.0-5.20); Red Cell Distribution Width 14.4 % (11.8-14.3); White Blood Cell 3.7 10^3/uL (4.4-10.8)
[2022-01-26 10:35] LABS: Urine Bacteria NONE SEEN /hpf (None Seen); Urine Blood Negative /uL (Negative); Urine WBC 1 /hpf (0 - 5)
[2022-01-26 11:14] LABS: Albumin 3.9 g/dL (3.4-5.0); Calcium 8.8 mg/dL (8.5-10.1); Magnesium 1.9 mg/dL (1.6-2.6); Potassium 3.9 mmol/L (3.5-5.1)
[2022-01-26 11:28] LABS: BUN/Creatinine Ratio 15.3; Total Protein 6.8 g/dL (6.4-8.2)
[2022-01-26 11:42] LABS: Free T4 (Free Thyroxine) 0.97 ng/dL (0.89-1.76)
== END | disposition home or self-care (01) ==
LOC: LAB 09:57
PROVIDERS: ATTEND Internal Medicine
DX: I10 Essential (primary) hypertension (principal); J44.9 Chronic obstructive pulmonary disease, unspecified; R25.2 Cramp and spasm
CPT/HCPCS: 36415; 80053; 80061; 81001; 82607; 83735; 84439; 84443; 85025

== ENCOUNTER → 2022-02-23 | Outpatient (CLI) | payer OTHER | END | disposition home or self-care (01) | LOC: XY 09:36 | PROVIDERS: ATTEND Internal Medicine | DX: I65.23 Occlusion and stenosis of bilateral carotid arteries (principal) | CPT/HCPCS: 93886 ==

== ENCOUNTER → 2022-03-28 | Outpatient (CLI) | payer OTHER | END | disposition home or self-care (01) | LOC: Rad HDHVI 14:04 | PROVIDERS: ATTEND Internal Medicine Cardiovascular Disease | DX: I35.0 Nonrheumatic aortic (valve) stenosis (principal); I10 Essential (primary) hypertension; R06.02 Shortness of breath | CPT/HCPCS: 93306 ==

== ENCOUNTER → 2022-03-29 | Outpatient (CLI) | payer OTHER ==
[~2022-03-29] VITALS: Ht 157.5 cm; Wt 72.1 kg
[~2022-03-29] MED LIST changes: +ADENOSINE 61 MG in GIVE UN-DILUTED 0 ML IV ONE; +ADENOSINE 90 MG/30 ML INJ IV ONE; +ALBUTEROL SULF 2.5 MG/0.5ML(0.5%) NEB SOLN ONE
== END | disposition home or self-care (01) ==
LOC: Rad HDHVI 08:23
PROVIDERS: ATTEND Internal Medicine Cardiovascular Disease
DX: Z01.810 Encounter for preprocedural cardiovascular examination (principal); Z13.6 Encounter for screening for cardiovascular disorders; I10 Essential (primary) hypertension; E78.5 Hyperlipidemia, unspecified; R06.02 Shortness of breath; J44.9 Chronic obstructive pulmonary disease, unspecified; I65.29 Occlusion and stenosis of unspecified carotid artery; I25.2 Old myocardial infarction; Z79.82 Long term (current) use of aspirin; Z79.899 Other long term (current) drug therapy
CPT/HCPCS: 78452; 93005; 94640; 96374; 96375; A9500; J0153

== ENCOUNTER → 2022-06-16 | Outpatient (CLI) | payer BC ==
[~2022-06-16] MED LIST changes: -ADENOSINE 61 MG in GIVE UN-DILUTED 0 ML IV ONE; -ADENOSINE 90 MG/30 ML INJ IV ONE; -ALBUTEROL SULF 2.5 MG/0.5ML(0.5%) NEB SOLN ONE
[2022-06-16 11:00] LABS: Basophils # (auto) 0 10 ^3/uL (0-0.2); Basophils % (auto) 0.7 % (0.0-2.0); Eosinophils # (auto) 0.1 10 ^3/uL (0-0.8); Eosinophils % (auto) 1.8 % (0.0-7.0); Hemoglobin 14.3 g/dL (12.2-16.2); Lymphocytes # (auto) 0.9 10 ^3/uL (0.4-5.4); Lymphocytes % (auto) 17.1 % (10.0-50.0); Mean Corpuscular Hemoglobin 32.6 pg (28.0-32.0); Mean Corpuscular Hgb Conc. 33.3 g/dL (32.0-36.0); Mean Corpuscular Volume 97.9 fL (80.0-100.0); Monocytes # (auto) 0.6 10 ^3/uL (0-1.3); Monocytes % (auto) 11.5 % (0.0-12.0); Neutrophils # (auto) 3.4 10 ^3/uL (1.6-8.6); Neutrophils % (auto) 68.9 % (37.0-80.0); Nucleated Red Blood Cells % 0.1 %; Red Blood Cells 4.39 10^6/uL (4.0-5.20); Red Cell Distribution Width 14.6 % (11.8-14.3)
[2022-06-16 11:57] LABS: Potassium 4.3 mmol/L (3.5-5.1)
[2022-06-16 12:08] LABS: Albumin 3.9 g/dL (3.4-5.0); BUN/Creatinine Ratio 13.4; Bilirubin, Total 0.6 mg/dL (0.2-1.0); Calcium 9.2 mg/dL (8.5-10.1); Magnesium 2.4 mg/dL (1.6-2.6); Total Protein 7.7 g/dL (6.4-8.2)
== END | disposition home or self-care (01) ==
LOC: LAB 10:31
PROVIDERS: ATTEND Internal Medicine
DX: I10 Essential (primary) hypertension (principal); J44.9 Chronic obstructive pulmonary disease, unspecified
CPT/HCPCS: 36415; 80053; 83735; 83880; 84439; 84443; 85025; 85379; 85652

== ENCOUNTER 2022-08-09 18:47 | Inpatient (IN) | payer OTHER, MEDICAID ==
[~2022-08-09] VITALS: Ht 157.5 cm; Wt 78.8 kg
[2022-08-09] MEDS ORDERED: MAGNESIUM SULFATE 1GM/100ML 100 ML IV STA (18:57)
[2022-08-09] MEDS ORDERED: IPRATROPIUM BROM 0.5 MG/2.5ML INH SOL NEB ONE ×2 (19:00→22:00)
[2022-08-09] MEDS ORDERED: methylPREDNISolone SOD SUCC 125 MG/2 ML VL IV ONE (19:00)
[2022-08-09] MEDS ORDERED: ALBUTEROL SULF 2.5 MG/0.5ML(0.5%) NEB SOLN NEB ONE ×2 (19:00→22:00)
[2022-08-09] MEDS ORDERED: ALBUTEROL SULF 2.5 MG/0.5ML(0.5%) NEB SOLN ONE (19:05)
[2022-08-09] MEDS ORDERED: IPRATROPIUM BROM 0.5 MG/2.5ML INH SOL ONE (19:05)
[2022-08-09 20:10] LABS: Albumin 2.8 g/dL (3.4-5.0); BUN/Creatinine Ratio 28.2 (10.0-20.0); Calcium 9.1 mg/dL (8.5-10.1); Potassium 3.2 mmol/L (3.5-5.1)
[2022-08-09 20:13] LABS: Bilirubin, Total 0.6 mg/dL (0.2-1.0); Total Protein 6.7 g/dL (6.4-8.2)
[2022-08-09 20:54] LABS: Basophils # (auto) 0 10 ^3/uL (0-0.2); Basophils % (auto) 0.1 % (0.0-2.0); Eosinophils # (auto) 0 10 ^3/uL (0-0.8); Eosinophils % (auto) 0.1 % (0.0-7.0); Hematocrit 35.5 % (36.0-46.0); Hemoglobin 12.5 g/dL (12.2-16.2); Lymphocytes # (auto) 0.5 10 ^3/uL (0.4-5.4); Lymphocytes % (auto) 3.8 % (10.0-50.0); Mean Corpuscular Hgb Conc. 35.3 g/dL (32.0-36.0); Mean Corpuscular Volume 93.5 fL (80.0-100.0); Monocytes # (auto) 0.6 10 ^3/uL (0-1.3); Monocytes % (auto) 4.6 % (0.0-12.0); Neutrophils # (auto) 11.8 10 ^3/uL (1.6-8.6); Neutrophils % (auto) 91.4 % (37.0-80.0); Nucleated Red Blood Cells % 0.1 %; Red Cell Distribution Width 14.3 % (11.8-14.3); White Blood Cell 12.9 10^3/uL (4.4-10.8)
[2022-08-09] MEDS ORDERED: NITROGLYCERIN 0.4 MG SL TAB SL PRN (22:30)
[2022-08-09] MEDS ORDERED: cloNIDine HCL 0.1 MG TAB PO PRN (22:30)
[2022-08-09] MEDS ORDERED: AZITHROMYCIN 500MG/ 250ML 250 ML IV ONE (22:30)
[2022-08-09] MEDS ORDERED: MORPHINE SULFATE INJ 2 MG/ml SYRG IV PRN (22:30)
[2022-08-09] MEDS ORDERED: cefTRIAXone 1GM/50ML D5W 50 ML IV ONE (22:30)
[2022-08-09] MEDS ORDERED: ONDANSETRON HCL 4 MG/2 ML VIAL IV PRN (22:30)
[2022-08-09] MEDS ORDERED: ACETAMINOPHEN 325 MG TAB PO PRN (22:30)
[2022-08-09] MEDS ORDERED: POTASSIUM CHL 20 Meq TABLET PO ONE (22:30)
[2022-08-09 22:40] VITALS: BP 146/61
[2022-08-10 00:01] VITALS: BP 139/52
[2022-08-10] MEDS ORDERED: methylPREDNISolone 4 MG TAB PO ONE (01:30)
[2022-08-10 01:50] VITALS: BP 165/75
[2022-08-10] MEDS ORDERED: methylPREDNISolone SOD SUCC 125 MG/2 ML VL IV ONE (02:15)
[2022-08-10 03:34] VITALS: BP 73/98
[2022-08-10 04:08] VITALS: BP 73/98
[2022-08-10 05:45] VITALS: BP 146/62
[2022-08-10] MEDS: ALBUTEROL SULF 2.5 MG/0.5ML(0.5%) NEB SOLN NEB PRN ×3 (05:45→18:37)
[2022-08-10] MEDS: IPRATROPIUM BROM 0.5 MG/2.5ML INH SOL NEB SCH ×3 (05:45→18:37)
[2022-08-10 06:07] LABS: Hematocrit 34.7 % (36.0-46.0); Mean Corpuscular Hemoglobin 33.6 pg (28.0-32.0); Mean Corpuscular Hgb Conc. 34.7 g/dL (32.0-36.0); Mean Corpuscular Volume 96.8 fL (80.0-100.0); Red Blood Cells 3.58 10^6/uL (4.0-5.20); Red Cell Distribution Width 14.6 % (11.8-14.3); White Blood Cell 11.7 10^3/uL (4.4-10.8)
[2022-08-10 06:28] LABS: Albumin 2.7 g/dL (3.4-5.0); Basophils % (manual) 0 (0.0-2.0); Blast Cells 0; Calcium 9.2 mg/dL (8.5-10.1); Eosinophils % (manual) 0 (0-7); Metamyelocytes % 0; Myelocytes % 0; Promyelocytes % 0; Reactive Lymphocytes 0
[2022-08-10 06:32] LABS: BUN/Creatinine Ratio 24.8 (10.0-20.0); Bilirubin, Total 0.4 mg/dL (0.2-1.0); Total Protein 7.6 g/dL (6.4-8.2)
[2022-08-10 06:46] LABS: Potassium 2.9 mmol/L (3.5-5.1)
[2022-08-10] MEDS ORDERED: POTASSIUM CHL 20 Meq TABLET PO ONE ×2 (07:00→14:45)
[2022-08-10 08:01] LABS: Band Neutrophils % (manual) 3; Lymphocytes % (manual) 3 (10.0-50.0); Monocytes % (manual) 1 (0-12)
[2022-08-10] MEDS: cefTRIAXone 1GM/50ML D5W 50 ML IV SCH (09:17)
[2022-08-10] MEDS ORDERED: FUROSEMIDE 40 MG TAB PO SCH (10:00)
[2022-08-10] MEDS ORDERED: AZITHROMYCIN 500MG/ 250ML 250 ML IV SCH (10:00)
[2022-08-10] MEDS: ENOXAPARIN SOD 40 MG/0.4 ML SYRINGE SC SCH (10:59)
[2022-08-10] MEDS: ASPirin 81 mg TAB PO SCH (10:59)
[2022-08-10] MEDS: CLOPIDOGREL BISULFATE 75 MG TAB PO SCH (10:59)
[2022-08-10] MEDS: hydrALAZINE HCL 25 MG TAB PO SCH ×2 (10:59→22:15)
[2022-08-10] MEDS: LOSARTAN POTASSIUM 50 MG TAB PO SCH (11:00)
[2022-08-10] MEDS: PANTOPRAZOLE 40 MG TAB PO SCH (11:00)
[2022-08-10] MEDS ORDERED: DEXTROSE (50%) 50ML SYRG IV PRN (14:45)
[2022-08-10 15:46] LABS: Free T4 (Free Thyroxine) 1.13 ng/dL (0.89-1.76)
[2022-08-10] MEDS: MAGNESIUM SULFATE 1GM/100ML 100 ML IV SCH ×2 (16:37→18:39)
[2022-08-10] MEDS ORDERED: ERGOCALCIFEROL 50,000 UNIT(1.25MG) CAP PO SCH (16:45)
[2022-08-10 17:35] LABS: Partial Thromboplastin Time 29.8 sec (24.6-33.4)
[2022-08-10] MEDS: ACCU-CHEK COMFORT CURVE STRIP VI SCH ×2 (17:45→22:29)
[2022-08-10] MEDS: InsuLIN REG 1unit/0.01ml Soln (100units/ml) SC SCH ×2 (17:46→22:29)
[2022-08-10] MEDS: FUROSEMIDE 20 MG/2 ML VIAL IV SCH (18:42)
[2022-08-10 20:25] LABS: Urine Bacteria FEW /hpf (None Seen); Urine Blood Negative /uL (Negative); Urine Specific Gravity 1.014 (1.001-1.035); Urine WBC <1 /hpf (0 - 5)
[2022-08-10] MEDS ORDERED: ATORVASTATIN 20 MG TAB PO SCH (22:00)
[2022-08-10] MEDS: methylPREDNISolone SOD SUCC 125 MG/2 ML VL IV SCH (22:13)
[2022-08-10] MEDS: DOXYCYCLINE 100 MG TAB/CAP PO SCH (22:14)
[2022-08-10 23:25] VITALS: BP 159/61
[2022-08-11] MEDS ORDERED: CLOP75TA70 PO (00:22)
[2022-08-11] MEDS ORDERED: IBUP800T27 PO (00:22)
[2022-08-11] MEDS ORDERED: FURO20TA3 PO (00:22)
[2022-08-11] MEDS ORDERED: MULT-1018 PO (00:22)
[2022-08-11] MEDS ORDERED: HYDR-3682 PO (00:22)
[2022-08-11] MEDS ORDERED: PRED2.5T4 PO (00:22)
[2022-08-11] MEDS ORDERED: TEMAZEPAM 15 MG CAP PO ONE (01:30)
[2022-08-11 05:04] VITALS: BP 156/70
[2022-08-11] MEDS: FUROSEMIDE 20 MG/2 ML VIAL IV SCH ×2 (06:13→18:30)
[2022-08-11] MEDS: ACCU-CHEK COMFORT CURVE STRIP VI SCH ×4 (06:13→21:54)
[2022-08-11] MEDS: InsuLIN REG 1unit/0.01ml Soln (100units/ml) SC SCH ×4 (06:14→22:45)
[2022-08-11 06:18] LABS: Basophils # (auto) 0 10 ^3/uL (0-0.2); Eosinophils # (auto) 0 10 ^3/uL (0-0.8); Hematocrit 32.5 % (36.0-46.0); Hemoglobin 11.2 g/dL (12.2-16.2); Lymphocytes # (auto) 0.2 10 ^3/uL (0.4-5.4); Lymphocytes % (auto) 1.7 % (10.0-50.0); Mean Corpuscular Hemoglobin 32.7 pg (28.0-32.0); Mean Corpuscular Hgb Conc. 34.6 g/dL (32.0-36.0); Mean Corpuscular Volume 94.4 fL (80.0-100.0); Monocytes # (auto) 0.3 10 ^3/uL (0-1.3); Monocytes % (auto) 2.1 % (0.0-12.0); Neutrophils # (auto) 13.3 10 ^3/uL (1.6-8.6); Neutrophils % (auto) 96.2 % (37.0-80.0); Nucleated Red Blood Cells % 0.1 %; Red Blood Cells 3.44 10^6/uL (4.0-5.20); Red Cell Distribution Width 14.4 % (11.8-14.3); White Blood Cell 13.8 10^3/uL (4.4-10.8)
[2022-08-11 06:36] LABS: BUN/Creatinine Ratio 34.8 (10.0-20.0); Calcium 8.8 mg/dL (8.5-10.1); Magnesium 2.6 mg/dL (1.6-2.6); Phosphorus 2.2 mg/dL (2.5-4.90)
[2022-08-11] MEDS: IPRATROPIUM BROM 0.5 MG/2.5ML INH SOL NEB SCH ×3 (06:40→19:05)
[2022-08-11] MEDS: ALBUTEROL SULF 2.5 MG/0.5ML(0.5%) NEB SOLN NEB PRN ×3 (06:40→19:05)
[2022-08-11] MEDS: cefTRIAXone 1GM/50ML D5W 50 ML IV SCH (09:15)
[2022-08-11] MEDS: methylPREDNISolone SOD SUCC 125 MG/2 ML VL IV SCH ×2 (11:19→22:42)
[2022-08-11] MEDS: ASPirin 81 mg TAB PO SCH (11:19)
[2022-08-11] MEDS: CLOPIDOGREL BISULFATE 75 MG TAB PO SCH (11:20)
[2022-08-11] MEDS: LOSARTAN POTASSIUM 50 MG TAB PO SCH (11:20)
[2022-08-11] MEDS: hydrALAZINE HCL 25 MG TAB PO SCH ×2 (11:20→22:43)
[2022-08-11] MEDS: PANTOPRAZOLE 40 MG TAB PO SCH (11:20)
[2022-08-11] MEDS: ENOXAPARIN SOD 40 MG/0.4 ML SYRINGE SC SCH (11:21)
[2022-08-11] MEDS: DOXYCYCLINE 100 MG TAB/CAP PO SCH ×2 (11:21→22:43)
[2022-08-11 13:00] VITALS: BP 161/65
[2022-08-11 17:00] VITALS: BP 154/70
[2022-08-11] MEDS ORDERED: NIFEdipine ER 30 MG TAB PO ONE (17:15)
[2022-08-11] MEDS ORDERED: IOHEXOL 350 MG/ML 100ML IJ ONE (17:42)
[2022-08-11 22:00] VITALS: BP 145/81
[2022-08-11] MEDS: ATORVASTATIN 20 MG TAB PO SCH (22:42)
[2022-08-12 05:00] VITALS: BP 140/63
[2022-08-12 06:21] LABS: Calcium 8.7 mg/dL (8.5-10.1); Potassium 3.9 mmol/L (3.5-5.1)
[2022-08-12 06:24] LABS: BUN/Creatinine Ratio 42.4 (10.0-20.0)
[2022-08-12] MEDS: FUROSEMIDE 20 MG/2 ML VIAL IV SCH ×2 (06:25→17:48)
[2022-08-12] MEDS: ACCU-CHEK COMFORT CURVE STRIP VI SCH ×4 (06:26→23:00)
[2022-08-12] MEDS: InsuLIN REG 1unit/0.01ml Soln (100units/ml) SC SCH ×4 (06:26→23:01)
[2022-08-12] MEDS: IPRATROPIUM BROM 0.5 MG/2.5ML INH SOL NEB SCH ×4 (06:47→19:00)
[2022-08-12 08:19] VITALS: BP 156/87
[2022-08-12] MEDS: cefTRIAXone 1GM/50ML D5W 50 ML IV SCH (08:47)
[2022-08-12] MEDS: methylPREDNISolone SOD SUCC 125 MG/2 ML VL IV SCH ×2 (10:12→23:00)
[2022-08-12] MEDS: hydrALAZINE HCL 25 MG TAB PO SCH ×2 (10:13→22:57)
[2022-08-12] MEDS: LOSARTAN POTASSIUM 50 MG TAB PO SCH (10:13)
[2022-08-12] MEDS: ASPirin 81 mg TAB PO SCH (10:13)
[2022-08-12] MEDS: NIFEdipine ER 30 MG TAB PO SCH (10:14)
[2022-08-12] MEDS: PANTOPRAZOLE 40 MG TAB PO SCH (10:14)
[2022-08-12] MEDS: DOXYCYCLINE 100 MG TAB/CAP PO SCH ×2 (10:14→22:57)
[2022-08-12] MEDS: CLOPIDOGREL BISULFATE 75 MG TAB PO SCH (10:14)
[2022-08-12] MEDS: ENOXAPARIN SOD 40 MG/0.4 ML SYRINGE SC SCH (10:15)
[2022-08-12] MEDS ORDERED: REMDESIVIR PER PHARMACY 0 ML IV SCH (12:45)
[2022-08-12 12:50] VITALS: BP 131/75
[2022-08-12] MEDS ORDERED: REMDESIVIR 200 MG in NS 210ml LOADING DOSE ADULT IV ONE (13:00)
[2022-08-12 16:21] VITALS: BP 146/78
[2022-08-12] MEDS: ALBUTEROL SULF 2.5 MG/0.5ML(0.5%) NEB SOLN NEB PRN ×2 (18:57→19:00)
[2022-08-12 21:57] VITALS: BP 148/78
[2022-08-12 22:01] VITALS: BP 136/55
[2022-08-12] MEDS: ATORVASTATIN 20 MG TAB PO SCH (22:57)
[2022-08-13 05:00] VITALS: BP 142/59
[2022-08-13] MEDS: FUROSEMIDE 20 MG/2 ML VIAL IV SCH ×2 (05:37→17:31)
[2022-08-13 05:53] LABS: Albumin 2.5 g/dL (3.4-5.0); Bilirubin, Total 0.2 mg/dL (0.2-1.0); Calcium 8.2 mg/dL (8.5-10.1); Total Protein 5.7 g/dL (6.4-8.2)
[2022-08-13] MEDS: ALBUTEROL SULF 2.5 MG/0.5ML(0.5%) NEB SOLN NEB PRN ×2 (06:24→18:57)
[2022-08-13] MEDS: IPRATROPIUM BROM 0.5 MG/2.5ML INH SOL NEB SCH ×2 (06:24→18:57)
[2022-08-13] MEDS: ACCU-CHEK COMFORT CURVE STRIP VI SCH ×4 (06:39→21:54)
[2022-08-13] MEDS: InsuLIN REG 1unit/0.01ml Soln (100units/ml) SC SCH ×4 (06:40→21:54)
[2022-08-13] MEDS: cefTRIAXone 1GM/50ML D5W 50 ML IV SCH (08:43)
[2022-08-13 09:00] VITALS: BP 140/59
[2022-08-13] MEDS: hydrALAZINE HCL 25 MG TAB PO SCH ×2 (10:04→22:04)
[2022-08-13] MEDS: ASPirin 81 mg TAB PO SCH (10:04)
[2022-08-13] MEDS: methylPREDNISolone SOD SUCC 125 MG/2 ML VL IV SCH ×2 (10:04→22:02)
[2022-08-13] MEDS: LOSARTAN POTASSIUM 50 MG TAB PO SCH (10:05)
[2022-08-13] MEDS: CLOPIDOGREL BISULFATE 75 MG TAB PO SCH (10:05)
[2022-08-13] MEDS: NIFEdipine ER 30 MG TAB PO SCH (10:05)
[2022-08-13] MEDS: DOXYCYCLINE 100 MG TAB/CAP PO SCH ×2 (10:06→22:03)
[2022-08-13] MEDS: ENOXAPARIN SOD 40 MG/0.4 ML SYRINGE SC SCH (10:06)
[2022-08-13] MEDS: PANTOPRAZOLE 40 MG TAB PO SCH (10:06)
[2022-08-13 13:00] VITALS: BP 116/66
[2022-08-13] MEDS: REMDESIVIR 100mg 100 MG in SODIUM CHL 0.9% 230 ML IV SCH (15:10)
[2022-08-13 17:00] VITALS: BP 131/74
[2022-08-13 22:00] VITALS: BP 140/59
[2022-08-13] MEDS: ATORVASTATIN 20 MG TAB PO SCH (22:02)
[2022-08-14 05:00] VITALS: BP 137/66
[2022-08-14 06:06] LABS: Hematocrit 36.8 % (36.0-46.0); Hemoglobin 12.6 g/dL (12.2-16.2); Mean Corpuscular Hemoglobin 32.9 pg (28.0-32.0); Mean Corpuscular Hgb Conc. 34.3 g/dL (32.0-36.0); Mean Corpuscular Volume 95.8 fL (80.0-100.0); Red Blood Cells 3.84 10^6/uL (4.0-5.20); Red Cell Distribution Width 14.9 % (11.8-14.3); White Blood Cell 8.9 10^3/uL (4.4-10.8)
[2022-08-14 06:21] LABS: Calcium 8.2 mg/dL (8.5-10.1); Potassium 4.1 mmol/L (3.5-5.1)
[2022-08-14 06:22] LABS: Basophils % (manual) 0 (0.0-2.0); Blast Cells 0; Eosinophils % (manual) 0 (0-7); Metamyelocytes % 0; Promyelocytes % 0; Reactive Lymphocytes 0
[2022-08-14 06:27] LABS: Albumin 2.3 g/dL (3.4-5.0); Bilirubin, Total 0.3 mg/dL (0.2-1.0); Total Protein 6.1 g/dL (6.4-8.2)
[2022-08-14] MEDS: ALBUTEROL SULF 2.5 MG/0.5ML(0.5%) NEB SOLN NEB PRN ×2 (06:55→11:58)
[2022-08-14] MEDS: IPRATROPIUM BROM 0.5 MG/2.5ML INH SOL NEB SCH ×2 (06:55→11:58)
[2022-08-14] MEDS: FUROSEMIDE 20 MG/2 ML VIAL IV SCH ×2 (06:58→18:00)
[2022-08-14] MEDS: ACCU-CHEK COMFORT CURVE STRIP VI SCH ×3 (06:58→17:24)
[2022-08-14] MEDS: InsuLIN REG 1unit/0.01ml Soln (100units/ml) SC SCH ×3 (06:58→17:26)
[2022-08-14 07:47] LABS: Band Neutrophils % (manual) 3; Lymphocytes % (manual) 9 (10.0-50.0); Monocytes % (manual) 6 (0-12); Myelocytes % 2
[2022-08-14 09:00] VITALS: BP 148/70
[2022-08-14] MEDS: methylPREDNISolone SOD SUCC 125 MG/2 ML VL IV SCH (10:34)
[2022-08-14] MEDS: ENOXAPARIN SOD 40 MG/0.4 ML SYRINGE SC SCH (10:35)
[2022-08-14] MEDS: LOSARTAN POTASSIUM 50 MG TAB PO SCH (10:36)
[2022-08-14] MEDS: hydrALAZINE HCL 25 MG TAB PO SCH (10:36)
[2022-08-14] MEDS: DOXYCYCLINE 100 MG TAB/CAP PO SCH (10:36)
[2022-08-14] MEDS: PANTOPRAZOLE 40 MG TAB PO SCH (10:36)
[2022-08-14] MEDS: CLOPIDOGREL BISULFATE 75 MG TAB PO SCH (10:36)
[2022-08-14] MEDS: cefTRIAXone 1GM/50ML D5W 50 ML IV SCH (10:38)
[2022-08-14] MEDS: ASPirin 81 mg TAB PO SCH (10:41)
[2022-08-14] MEDS: NIFEdipine ER 30 MG TAB PO SCH (10:42)
[2022-08-14 12:34] VITALS: BP 141/68
[2022-08-14] MEDS: REMDESIVIR 100mg 100 MG in SODIUM CHL 0.9% 230 ML IV SCH (12:51)
[2022-08-14 16:28] VITALS: BP 141/68
[2022-08-14 16:40] VITALS: BP 128/81
== END 2022-08-14 19:02 | disposition home or self-care (01) | DRG 177 ==
LOC: EDBD 18:47 → ER 18:47 → TELE 22:26 → TELE-WESTW 08-10 23:03
PROVIDERS: ADMIT Nurse Practitioner; ATTEND Internal Medicine
PROC: 5A09357 Assistance with Respiratory Ventilation, Less than 24 Consecutive Hours, Continuous Positive Airway Pressure (ICD-10-PCS; 2022-08-09)
PROC: XW033E5 Introduction of Remdesivir Anti-infective into Peripheral Vein, Percutaneous Approach, New Technology Group 5 (ICD-10-PCS; principal; 2022-08-12)
DX: U07.1 COVID-19 (principal); I50.31 Acute diastolic (congestive) heart failure; J12.82 Pneumonia due to coronavirus disease 2019; J96.01 Acute respiratory failure with hypoxia; J18.0 Bronchopneumonia, unspecified organism; J44.1 Chronic obstructive pulmonary disease with (acute) exacerbation; F32.A Depression, unspecified; K21.9 Gastro-esophageal reflux disease without esophagitis; Z82.49 Family history of ischemic heart disease and other diseases of the circulatory system; Z90.89 Acquired absence of other organs; I11.0 Hypertensive heart disease with heart failure
CPT/HCPCS: 36415; 36600; 71045; 71275; 80048; 80053; 80061; 81001; 82306; 82607; 82805; 82962; 83036; 83735; 83880; 84100; 84439; 84443; 84484; 85007; 85025; 85027; 85379; 85610; 85730; 87426; 87804; 93005; 93970; 94640; 94660; 96365; 96367; 96375; 99291; G0378; J0696; J1815

== ENCOUNTER 2022-11-21 07:20 | Emergency (ER) | payer OTHER, MEDICAID ==
[~2022-11-21] VITALS: Ht 157.5 cm; Wt 65.0 kg
[~2022-11-21 07:20] MED LIST changes: +CLOP75TA70 PO; +FURO20TA3 PO; +HYDR-3682 PO; +IBUP-1456 PO; -LOSA-69; +LOSA50TA46; +MULT-1018 PO; +PRED2.5T4 PO
[2022-11-21 08:24] LABS: Urine Bacteria FEW /hpf (None Seen); Urine Blood 1+ /uL (Negative); Urine Specific Gravity 1.023 (1.001-1.035); Urine WBC 189 /hpf (0 - 5)
[2022-11-21] MEDS ORDERED: NITR-87 PO (08:48)
[2022-11-21] MEDS ORDERED: cefTRIAXone SOD 1,000 MG VL IM ONE (09:00)
[2022-11-21] MEDS ORDERED: cloNIDine HCL 0.1 MG TAB PO ONE (09:15)
[2022-11-21] MEDS ORDERED: cloNIDine HCL 0.1 MG TAB ONE (09:18)
[2022-11-21 09:29] LABS: Basophils # (auto) 0 10 ^3/uL (0-0.2); Basophils % (auto) 0.4 % (0.0-2.0); Eosinophils # (auto) 0 10 ^3/uL (0-0.8); Eosinophils % (auto) 0.3 % (0.0-7.0); Hematocrit 39.9 % (36.0-46.0); Hemoglobin 13.4 g/dL (12.2-16.2); Lymphocytes # (auto) 0.8 10 ^3/uL (0.4-5.4); Lymphocytes % (auto) 8.1 % (10.0-50.0); Mean Corpuscular Hemoglobin 33.1 pg (28.0-32.0); Mean Corpuscular Hgb Conc. 33.6 g/dL (32.0-36.0); Mean Corpuscular Volume 98.5 fL (80.0-100.0); Monocytes % (auto) 9.4 % (0.0-12.0); Neutrophils # (auto) 8.4 10 ^3/uL (1.6-8.6); Neutrophils % (auto) 81.8 % (37.0-80.0); Nucleated Red Blood Cells % 0.1 %; Red Blood Cells 4.05 10^6/uL (4.0-5.20); Red Cell Distribution Width 14.3 % (11.8-14.3); White Blood Cell 10.3 10^3/uL (4.4-10.8)
[2022-11-21 09:45] LABS: Albumin 3.4 g/dL (3.4-5.0); BUN/Creatinine Ratio 25.4 (10.0-20.0); Calcium 10.4 mg/dL (8.5-10.1); Potassium 3.7 mmol/L (3.5-5.1)
[2022-11-21 09:49] LABS: Bilirubin, Total 0.7 mg/dL (0.2-1.0)
[2022-11-21 09:54] LABS: INR 0.96 (0.9-1.15); Partial Thromboplastin Time 26.6 SEC (24.5-34.5)
[2022-11-21 10:12] VITALS: BP 165/78
== END 2022-11-21 10:17 | disposition left against medical advice (07) ==
LOC: ER 07:20
DX: I24.8 Other forms of acute ischemic heart disease (principal); N39.0 Urinary tract infection, site not specified; I10 Essential (primary) hypertension; J45.909 Unspecified asthma, uncomplicated; F32.9 Major depressive disorder, single episode, unspecified; K21.9 Gastro-esophageal reflux disease without esophagitis; E78.5 Hyperlipidemia, unspecified; Z79.899 Other long term (current) drug therapy; Z79.82 Long term (current) use of aspirin; Z90.89 Acquired absence of other organs
CPT/HCPCS: 36415; 70450; 74176; 80053; 81001; 84484; 85025; 85610; 85730; 96372; 99285; J0696

== ENCOUNTER 2023-05-15 20:31 | Inpatient (IN) | payer OTHER, MEDICAID ==
[~2023-05-15] VITALS: Ht 165.1 cm; Wt 59.6 kg
[~2023-05-15 20:31] MED LIST changes: +NITR-87 PO
[2023-05-15] MEDS ORDERED: ALBUTEROL SULF 2.5 MG/0.5ML(0.5%) NEB SOLN ONE (20:40)
[2023-05-15] MEDS ORDERED: IPRATROPIUM BROM 0.5 MG/2.5ML INH SOL ONE (20:40)
[2023-05-15] MEDS ORDERED: DexAMETHasone SOD PHOS 10MG/1ML VIAL INJ IV ONE ×2 (20:45)
[2023-05-15] MEDS ORDERED: SODIUM CHLORIDE 0.9% 2,000 ML IV ONE (20:45)
[2023-05-15] MEDS ORDERED: ALBUTEROL SULF 2.5 MG/0.5ML(0.5%) NEB SOLN NEB ONE ×2 (20:45→21:00)
[2023-05-15] MEDS ORDERED: SODIUM CHLORIDE 0.9% 2,050 ML IV ONE (20:45)
[2023-05-15] MEDS ORDERED: ACETAMINOPHEN 500 MG TAB PO ONE (20:45)
[2023-05-15] MEDS ORDERED: VANCOMYCIN 1GM/200ML 200 ML IV ONE (20:45)
[2023-05-15] MEDS ORDERED: IPRATROPIUM BROM 0.5 MG/2.5ML INH SOL NEB ONE ×2 (20:45→21:00)
[2023-05-15] MEDS ORDERED: MAGNESIUM SULFATE 1GM/100ML 100 ML IV ONE ×2 (20:45)
[2023-05-15] MEDS ORDERED: PIPERACILLIN-TAZO 4.5GM 100 ML IV ONE (20:45)
[2023-05-15] MEDS ORDERED: hydrALAZINE HCL 20 MG/ML VL IV ONE (21:00)
[2023-05-15 21:36] LABS: Basophils # (auto) 0 10 ^3/uL (0-0.2); Basophils % (auto) 0.5 % (0.0-2.0); Eosinophils # (auto) 0 10 ^3/uL (0-0.8); Eosinophils % (auto) 0.4 % (0.0-7.0); Hemoglobin 11.6 g/dL (12.2-16.2); Mean Corpuscular Hemoglobin 33.4 pg (28.0-32.0); Mean Corpuscular Hgb Conc. 32.9 g/dL (32.0-36.0); Monocytes # (auto) 0.8 10 ^3/uL (0-1.3); Neutrophils # (auto) 4.6 10 ^3/uL (1.6-8.6); Red Cell Distribution Width 14.9 % (11.8-14.3)
[2023-05-15 21:37] LABS: Hematocrit 35.1 % (36.0-46.0); Lymphocytes # (auto) 0.6 10 ^3/uL (0.4-5.4); Lymphocytes % (auto) 9.3 % (10.0-50.0); Mean Corpuscular Volume 101.5 fL (80.0-100.0); Monocytes % (auto) 12.9 % (0.0-12.0); Neutrophils % (auto) 76.9 % (37.0-80.0); Red Blood Cells 3.46 10^6/uL (4.0-5.20)
[2023-05-15 21:43] LABS: Base Excess -3.5 mmol/L (-2.0-2.0)
[2023-05-15 22:04] LABS: Alanine Aminotransferase 24 U/L (7-40); Albumin 4.2 g/dL (3.2-4.8); Alkaline Phosphatase 166 U/L (46-116); Anion Gap 8 (5-15); Aspartate Aminotransferase 38 U/L (13-40); BUN/Creatinine Ratio 10.6 (10.0-20.0); Blood Urea Nitrogen 10 mg/dL (9-23); Calcium 9.1 mg/dL (8.5-10.1); Carbon Dioxide 27 mmol/L (20-30); Chloride 105 mmol/L (98-107); Glucose 160 mg/dL (74-106); Potassium 3.7 mmol/L (3.5-5.1); Sodium 140 mmol/L (136-145)
[2023-05-15 22:05] LABS: Bilirubin, Total 0.6 mg/dL (0.2-1.0); Total Protein 6.3 g/dL (5.7-8.2)
[2023-05-15 22:09] LABS: INR 0.97 (0.9-1.15); Partial Thromboplastin Time 27.3 SEC (24.5-34.5); Prothrombin Time 10.2 sec (9.3-11.8)
[2023-05-15 23:15] VITALS: PULSE 87; RESP 35; O2SAT 98
[2023-05-15 23:16] LABS: Urine Bacteria NONE SEEN /hpf (None Seen); Urine Blood Negative /uL (Negative); Urine Clarity Clear (Clear); Urine Color Colorless (Yellow); Urine Protein, UAD Negative (Negative); Urine Specific Gravity 1.013 (1.001-1.035); Urine Urobilinogen Normal (Negative); Urine WBC 1 /hpf (0 - 5)
[2023-05-16] VITALS (22 sets, daily range): BP systolic 109–234; BP diastolic 43–87; PULSE 80–108; RESP 23–47; TEMP 96.8–99.3; O2SAT 96–100
[2023-05-16] MEDS ORDERED: TEMAZEPAM 15 MG CAP PO PRN (01:00)
[2023-05-16] MEDS ORDERED: ONDANSETRON HCL 4 MG/2 ML VIAL IV PRN (01:00)
[2023-05-16] MEDS ORDERED: MORPHINE SULFATE INJ 2 MG/ml SYRG IV PRN (01:00)
[2023-05-16] MEDS ORDERED: ALBUTEROL SULF 2.5 MG/0.5ML(0.5%) NEB SOLN NEB PRN (01:00)
[2023-05-16] MEDS ORDERED: IPRATROPIUM BROM 0.5 MG/2.5ML INH SOL NEB PRN (01:00)
[2023-05-16] MEDS ORDERED: NITROGLYCERIN 0.4 MG SL TAB SL PRN (01:00)
[2023-05-16] MEDS ORDERED: ACETAMINOPHEN 325 MG TAB PO PRN (01:00)
[2023-05-16 04:58] LABS: COVID19 ANTIGEN SOFIA FIA NEGATIVE (NEGATIVE)
[2023-05-16 05:00] LABS: Rapid Influenza A Negative (Negative); Rapid Influenza B Negative (Negative)
[2023-05-16] MEDS ORDERED: methylPREDNISolone SOD SUCC 40 MG/ML VL IV ONE (07:15)
[2023-05-16] MEDS: hydrALAZINE HCL 20 MG/ML VL IV PRN (07:33)
[2023-05-16] MEDS: LORazepam 2MG/ML-1ML VIAL IV PRN (07:40)
[2023-05-16 08:55] LABS: % Iron Saturation 15.9 % (15-50)
[2023-05-16] MEDS ORDERED: guaiFENesin-DM 100/10mg/5ml SYR PO PRN (09:00)
[2023-05-16] MEDS ORDERED: FUROSEMIDE 40 MG TAB PO SCH (10:00)
[2023-05-16] MEDS ORDERED: CLOPIDOGREL BISULFATE 75 MG TAB PO SCH (10:00)
[2023-05-16] MEDS: ENOXAPARIN SOD 40 MG/0.4 ML SYRINGE SC SCH (10:00)
[2023-05-16] MEDS: methylPREDNISolone SOD SUCC 40 MG/ML VL IV SCH ×2 (10:00→22:33)
[2023-05-16] MEDS ORDERED: hydrALAZINE HCL 25 MG TAB PO SCH (10:00)
[2023-05-16] MEDS: levoFLOXacin 500MG 100 ML IV SCH (10:00)
[2023-05-16] MEDS ORDERED: ASPirin 81 mg TAB PO SCH (10:00)
[2023-05-16] MEDS: BUDESONIDE (INHALATION) 0.5 MG/2 ML NEB NEB SCH ×2 (10:56→21:41)
[2023-05-16] MEDS: ALBUTEROL SULF 2.5 MG/0.5ML(0.5%) NEB SOLN NEB SCH ×4 (10:56→21:41)
[2023-05-16] MEDS: IPRATROPIUM BROM 0.5 MG/2.5ML INH SOL NEB SCH ×4 (10:56→21:41)
[2023-05-16] MEDS: LOSARTAN POTASSIUM 50 MG TAB PO SCH (12:15)
[2023-05-16 13:42] LABS: Amphetamine Screen, Urine Neg (NEGATIVE); Barbiturate Scree,Urine Neg (NEGATIVE); Benzodiazephine Screen, Urine Neg (NEGATIVE)
[2023-05-16 13:43] LABS: Cannabinoid Screen, Urine Neg (NEGATIVE); Cocaine Screen, Urine Neg (NEGATIVE); Opiate Scree,Urine Neg (NEGATIVE); Phencyclidine Screen, Urine Neg (NEGATIVE)
[2023-05-16] MEDS: hydrALAZINE HCL 25 MG TAB PO SCH ×2 (14:32→22:00)
[2023-05-16] MEDS: dilTIAZem 120MG ER CAP PO SCH (14:34)
[2023-05-16] MEDS: POTASSIUM CHL 20 Meq TABLET PO SCH (14:34)
[2023-05-16] MEDS: MULTIPLE VITAMIN TAB PO SCH (14:35)
[2023-05-16] MEDS: CLOPIDOGREL BISULFATE 75 MG TAB PO SCH (14:36)
[2023-05-16 15:59] LABS: Base Excess -5.9 mmol/L (-2.0-2.0)
[2023-05-16] MEDS ORDERED: MAGNESIUM SULFATE 1GM/100ML 100 ML IV ONE (16:15)
[2023-05-16] MEDS ORDERED: ALBUTEROL SULF 2.5 MG/0.5ML(0.5%) NEB SOLN NEB ONE (16:15)
[2023-05-16] MEDS ORDERED: SUCCINYLCHOLINE CHLORIDE 20 MG/ML 10ML VIAL IV ONE ×2 (17:06→17:15)
[2023-05-16] MEDS ORDERED: ETOMIDATE (2MG/ML) 20ML VIAL IV ONE ×2 (17:06→17:15)
[2023-05-16] MEDS ORDERED: PROPOFOL 100 ML IV ONE (17:15)
[2023-05-16] MEDS: PROPOFOL 100 ML IV SCH ×2 (17:15→21:13)
[2023-05-16] MEDS ORDERED: MIDAZOLAM DRIP 50 mg/50mL 50 ML IV ONE (17:42)
[2023-05-16] MEDS: MIDAZOLAM DRIP 50 mg/50mL 50 ML IV SCH ×2 (17:45→20:38)
[2023-05-16] MEDS: FUROSEMIDE 40 MG/4 ML VIAL IV SCH (18:00)
[2023-05-16] MEDS ORDERED: CYANOCOBALAMIN (B-12) 1000 MCG/1 ML VIAL IM ONE (19:30)
[2023-05-16 19:38] LABS: Base Excess -5.2 mmol/L (-2.0-2.0)
[2023-05-16] MEDS ORDERED: ATORVASTATIN 20 MG TAB PO SCH (22:00)
[2023-05-16] MEDS: ATORVASTATIN 20 MG TAB PO SCH (22:00)
[2023-05-16 22:01] LABS: Chloride 105 mmol/L (98-107); Potassium 3.2 mmol/L (3.5-5.1); Sodium 139 mmol/L (136-145)
[2023-05-16 22:02] LABS: Anion Gap 14 (5-15); Calcium 8.9 mg/dL (8.5-10.1); Carbon Dioxide 20 mmol/L (20-30)
[2023-05-16 22:07] LABS: BUN/Creatinine Ratio 14.5 (10.0-20.0); Blood Urea Nitrogen 16 mg/dL (9-23); Glucose 191 mg/dL (74-106)
[2023-05-16 22:24] LABS: Basophils # (auto) 0 10 ^3/uL (0-0.2); Basophils % (auto) 0.3 % (0.0-2.0); Eosinophils # (auto) 0 10 ^3/uL (0-0.8); Eosinophils % (auto) 0.2 % (0.0-7.0); Hemoglobin 10.8 g/dL (12.2-16.2); Lymphocytes # (auto) 0.1 10 ^3/uL (0.4-5.4); Lymphocytes % (auto) 2.1 % (10.0-50.0); Mean Corpuscular Hgb Conc. 32.7 g/dL (32.0-36.0); Mean Corpuscular Volume 103.8 fL (80.0-100.0); Monocytes # (auto) 0.3 10 ^3/uL (0-1.3); Monocytes % (auto) 3.7 % (0.0-12.0); Neutrophils # (auto) 6.6 10 ^3/uL (1.6-8.6); Neutrophils % (auto) 93.7 % (37.0-80.0); Nucleated Red Blood Cells % 0.1 %; Red Blood Cells 3.17 10^6/uL (4.0-5.20); Red Cell Distribution Width 15.6 % (11.8-14.3)
[2023-05-16] MEDS: PANTOPRAZOLE 40 MG/10 ML VIAL INJ IV SCH (22:33)
[2023-05-17] VITALS (108 sets, daily range): BP systolic 90–137; BP diastolic 37–59; PULSE 68–99; RESP 17–32; TEMP 96.4–98.8; O2SAT 96–100
[2023-05-17] MEDS: MIDAZOLAM DRIP 50 mg/50mL 50 ML IV SCH ×6 (00:29→23:06)
[2023-05-17] MEDS: PROPOFOL 100 ML IV SCH ×5 (01:26→21:27)
[2023-05-17] MEDS: ALBUTEROL SULF 2.5 MG/0.5ML(0.5%) NEB SOLN NEB SCH ×6 (02:06→21:59)
[2023-05-17] MEDS: IPRATROPIUM BROM 0.5 MG/2.5ML INH SOL NEB SCH ×6 (02:06→21:59)
[2023-05-17 04:05] LABS: Basophils # (auto) 0 10 ^3/uL (0-0.2); Basophils % (auto) 0.1 % (0.0-2.0); Eosinophils # (auto) 0 10 ^3/uL (0-0.8); Hematocrit 31.9 % (36.0-46.0); Hemoglobin 10.5 g/dL (12.2-16.2); Lymphocytes # (auto) 0.2 10 ^3/uL (0.4-5.4); Lymphocytes % (auto) 2.9 % (10.0-50.0); Mean Corpuscular Hemoglobin 33.8 pg (28.0-32.0); Mean Corpuscular Hgb Conc. 32.9 g/dL (32.0-36.0); Mean Corpuscular Volume 102.6 fL (80.0-100.0); Monocytes # (auto) 0.2 10 ^3/uL (0-1.3); Monocytes % (auto) 3.5 % (0.0-12.0); Neutrophils # (auto) 5.1 10 ^3/uL (1.6-8.6); Neutrophils % (auto) 93.5 % (37.0-80.0); Nucleated Red Blood Cells % 0.1 %; Red Blood Cells 3.11 10^6/uL (4.0-5.20); White Blood Cell 5.4 10^3/uL (4.4-10.8)
[2023-05-17 04:15] LABS: Alanine Aminotransferase 37 U/L (7-40); Albumin 3.7 g/dL (3.2-4.8); Alkaline Phosphatase 148 U/L (46-116); Anion Gap 12 (5-15); Aspartate Aminotransferase 51 U/L (13-40); BUN/Creatinine Ratio 15.3 (10.0-20.0); Bilirubin, Total 0.5 mg/dL (0.2-1.0); Blood Urea Nitrogen 17 mg/dL (9-23); Calcium 8.6 mg/dL (8.7-10.4); Carbon Dioxide 21 mmol/L (20-30); Chloride 105 mmol/L (98-107); Glucose 195 mg/dL (74-106); Potassium 3.2 mmol/L (3.5-5.1); Sodium 138 mmol/L (136-145); Total Protein 5.8 g/dL (5.7-8.2)
[2023-05-17] MEDS: FUROSEMIDE 40 MG/4 ML VIAL IV SCH ×2 (05:12→17:47)
[2023-05-17] MEDS: BUDESONIDE (INHALATION) 0.5 MG/2 ML NEB NEB SCH ×2 (06:32→22:00)
[2023-05-17 06:42] LABS: Base Excess -4.2 mmol/L (-2.0-2.0)
[2023-05-17] MEDS ORDERED: ERGOCALCIFEROL 50,000 UNIT(1.25MG) CAP PO SCH (08:15)
[2023-05-17] MEDS ORDERED: POTASSIUM CHL 20MEQ/100ML 100 ML IV ONE (08:15)
[2023-05-17] MEDS: methylPREDNISolone SOD SUCC 40 MG/ML VL IV SCH ×2 (09:13→21:26)
[2023-05-17] MEDS: PANTOPRAZOLE 40 MG/10 ML VIAL INJ IV SCH ×2 (09:13→21:26)
[2023-05-17] MEDS: ENOXAPARIN SOD 40 MG/0.4 ML SYRINGE SC SCH (09:14)
[2023-05-17] MEDS: MULTIPLE VITAMIN TAB PO SCH (09:14)
[2023-05-17] MEDS: CLOPIDOGREL BISULFATE 75 MG TAB PO SCH (09:16)
[2023-05-17] MEDS: LOSARTAN POTASSIUM 50 MG TAB PO SCH (10:00)
[2023-05-17] MEDS: dilTIAZem 120MG ER CAP PO SCH (10:00)
[2023-05-17] MEDS: hydrALAZINE HCL 25 MG TAB PO SCH ×2 (10:00→21:27)
[2023-05-17] MEDS: POTASSIUM CHL 20 Meq TABLET PO SCH (10:00)
[2023-05-17] MEDS: levoFLOXacin 500MG 100 ML IV SCH (10:50)
[2023-05-17] MEDS ORDERED: Jevity 1.2 Cal/Fiber 1 Liter GT SCH (11:45)
[2023-05-17] MEDS: NOREPINEPHRINE 8 MG/250ML KIT 250 ML IV SCH (12:00)
[2023-05-17] MEDS: fentaNYL Drip 2500mCg/250mlNS 250 ML IV SCH (12:34)
[2023-05-17] MEDS: SODIUM FERR GLUC 62.5MG/5ML 125 MG in SODIUM CHL 0.9% 100 ML IV SCH (15:51)
[2023-05-17] MEDS: ATORVASTATIN 20 MG TAB PO SCH (21:26)
[2023-05-18] VITALS (104 sets, daily range): BP systolic 89–140; BP diastolic 35–63; PULSE 67–77; RESP 12–34; TEMP 97.2–98.2; O2SAT 7–100
[2023-05-18] MEDS: PROPOFOL 100 ML IV SCH ×5 (01:31→21:38)
[2023-05-18] MEDS: ALBUTEROL SULF 2.5 MG/0.5ML(0.5%) NEB SOLN NEB SCH ×6 (02:10→22:10)
[2023-05-18] MEDS: IPRATROPIUM BROM 0.5 MG/2.5ML INH SOL NEB SCH ×6 (02:10→22:10)
[2023-05-18 03:58] LABS: Basophils # (auto) 0 10 ^3/uL (0-0.2); Basophils % (auto) 0.1 % (0.0-2.0); Eosinophils # (auto) 0 10 ^3/uL (0-0.8); Hemoglobin 10.5 g/dL (12.2-16.2); Lymphocytes # (auto) 0.1 10 ^3/uL (0.4-5.4); Mean Corpuscular Volume 102.1 fL (80.0-100.0); Monocytes # (auto) 0.2 10 ^3/uL (0-1.3); White Blood Cell 7.4 10^3/uL (4.4-10.8)
[2023-05-18 04:01] LABS: Eosinophils % (auto) 0.1 % (0.0-7.0); Hematocrit 31.6 % (36.0-46.0); Lymphocytes % (auto) 1.9 % (10.0-50.0); Mean Corpuscular Hgb Conc. 33.3 g/dL (32.0-36.0); Monocytes % (auto) 2.9 % (0.0-12.0); Neutrophils # (auto) 7.1 10 ^3/uL (1.6-8.6); Nucleated Red Blood Cells % 0.1 %; Red Cell Distribution Width 15.2 % (11.8-14.3)
[2023-05-18 04:13] LABS: Alanine Aminotransferase 35 U/L (7-40); Albumin 3.9 g/dL (3.2-4.8); Alkaline Phosphatase 135 U/L (46-116); Anion Gap 8 (5-15); Aspartate Aminotransferase 36 U/L (13-40); BUN/Creatinine Ratio 19.9 (10.0-20.0); Calcium 8.6 mg/dL (8.7-10.4); Carbon Dioxide 23 mmol/L (20-30); Chloride 106 mmol/L (98-107); Glucose 177 mg/dL (74-106); Potassium 4.2 mmol/L (3.5-5.1); Sodium 137 mmol/L (136-145)
[2023-05-18 04:14] LABS: Bilirubin, Total 0.3 mg/dL (0.2-1.0); Blood Urea Nitrogen 28 mg/dL (9-23); Total Protein 5.9 g/dL (5.7-8.2)
[2023-05-18] MEDS: MIDAZOLAM DRIP 50 mg/50mL 50 ML IV SCH ×2 (04:40→16:46)
[2023-05-18] MEDS: FUROSEMIDE 40 MG/4 ML VIAL IV SCH ×2 (05:29→17:47)
[2023-05-18] MEDS: BUDESONIDE (INHALATION) 0.5 MG/2 ML NEB NEB SCH ×2 (07:05→18:28)
[2023-05-18 08:17] LABS: Base Excess -3.4 mmol/L (-2.0-2.0)
[2023-05-18 09:22] LABS: Protein, Urine 47.1 mg/dL (0.0-11.9)
[2023-05-18 09:25] LABS: Creatinine, Urine 78.25 mg/dL (30.0-125.0); Urine Protein/Creatinine Ratio 0.6
[2023-05-18] MEDS: levoFLOXacin 500MG 100 ML IV SCH (09:55)
[2023-05-18] MEDS: PANTOPRAZOLE 40 MG/10 ML VIAL INJ IV SCH ×2 (09:55→21:36)
[2023-05-18] MEDS: POTASSIUM CHL 20 Meq TABLET PO SCH (09:56)
[2023-05-18] MEDS: methylPREDNISolone SOD SUCC 40 MG/ML VL IV SCH ×2 (09:56→21:36)
[2023-05-18] MEDS: MULTIPLE VITAMIN TAB PO SCH (09:56)
[2023-05-18] MEDS: ENOXAPARIN SOD 40 MG/0.4 ML SYRINGE SC SCH (09:57)
[2023-05-18] MEDS: hydrALAZINE HCL 25 MG TAB PO SCH ×2 (10:00→21:37)
[2023-05-18] MEDS: LOSARTAN POTASSIUM 50 MG TAB PO SCH (10:00)
[2023-05-18] MEDS: dilTIAZem 120MG ER CAP PO SCH (10:00)
[2023-05-18] MEDS: fentaNYL Drip 2500mCg/250mlNS 250 ML IV SCH (10:15)
[2023-05-18] MEDS: NOREPINEPHRINE 8 MG/250ML KIT 250 ML IV SCH (12:00)
[2023-05-18] MEDS: SODIUM FERR GLUC 62.5MG/5ML 125 MG in SODIUM CHL 0.9% 100 ML IV SCH (12:07)
[2023-05-18 12:31] LABS: INR 0.94 (0.9-1.15); Partial Thromboplastin Time 26.7 SEC (24.5-34.5); Prothrombin Time 9.9 sec (9.3-11.8)
[2023-05-18 12:55] LABS: Base Excess -5.1 mmol/L (-2.0-2.0)
[2023-05-18] MEDS ORDERED: LIDOCAINE 1% (LOCAL ANESTH.) PF 5ml SDV ID ONE (17:00)
[2023-05-18] MEDS: ATORVASTATIN 20 MG TAB PO SCH (21:36)
[2023-05-18] MEDS: SODIUM CHLOR 0.9% PF (SALINE LOCK) 10ML VIAL/SYR IV SCH (21:36)
[2023-05-19] VITALS (89 sets, daily range): BP systolic 105–175; BP diastolic 42–70; PULSE 54–111; RESP 16–25; TEMP 95.2–99.1; O2SAT 87–100
[2023-05-19] MEDS: IPRATROPIUM BROM 0.5 MG/2.5ML INH SOL NEB SCH ×6 (02:11→22:16)
[2023-05-19] MEDS: ALBUTEROL SULF 2.5 MG/0.5ML(0.5%) NEB SOLN NEB SCH ×6 (02:11→22:16)
[2023-05-19] MEDS: PROPOFOL 100 ML IV SCH (02:29)
[2023-05-19 03:55] LABS: Basophils # (auto) 0 10 ^3/uL (0-0.2); Basophils % (auto) 0.1 % (0.0-2.0); Eosinophils # (auto) 0 10 ^3/uL (0-0.8); Hemoglobin 10.1 g/dL (12.2-16.2); Lymphocytes # (auto) 0.1 10 ^3/uL (0.4-5.4); Monocytes # (auto) 0.2 10 ^3/uL (0-1.3); Neutrophils # (auto) 4.6 10 ^3/uL (1.6-8.6)
[2023-05-19 03:56] LABS: Hematocrit 30.8 % (36.0-46.0); Lymphocytes % (auto) 2.6 % (10.0-50.0); Mean Corpuscular Hemoglobin 33.5 pg (28.0-32.0); Mean Corpuscular Hgb Conc. 32.7 g/dL (32.0-36.0); Mean Corpuscular Volume 102.2 fL (80.0-100.0); Monocytes % (auto) 4.3 % (0.0-12.0); Nucleated Red Blood Cells % 0.1 %; Red Blood Cells 3.02 10^6/uL (4.0-5.20); Red Cell Distribution Width 15.5 % (11.8-14.3)
[2023-05-19 04:36] LABS: Alanine Aminotransferase 28 U/L (7-40); Albumin 3.6 g/dL (3.2-4.8); Alkaline Phosphatase 117 U/L (46-116); Anion Gap 9 (5-15); Aspartate Aminotransferase 24 U/L (13-40); BUN/Creatinine Ratio 26.6 (10.0-20.0); Blood Urea Nitrogen 34 mg/dL (9-23); Carbon Dioxide 23 mmol/L (20-30); Chloride 105 mmol/L (98-107); Glucose 257 mg/dL (74-106); Sodium 137 mmol/L (136-145)
[2023-05-19 04:37] LABS: Bilirubin, Total 0.3 mg/dL (0.2-1.0); Total Protein 5.5 g/dL (5.7-8.2)
[2023-05-19] MEDS: MIDAZOLAM DRIP 50 mg/50mL 50 ML IV SCH (05:24)
[2023-05-19] MEDS: FUROSEMIDE 40 MG/4 ML VIAL IV SCH ×2 (05:25→19:11)
[2023-05-19] MEDS: fentaNYL Drip 2500mCg/250mlNS 250 ML IV SCH (05:43)
[2023-05-19 06:44] LABS: Base Excess -4.5 mmol/L (-2.0-2.0)
[2023-05-19] MEDS: BUDESONIDE (INHALATION) 0.5 MG/2 ML NEB NEB SCH ×2 (09:21→22:16)
[2023-05-19] MEDS: PANTOPRAZOLE 40 MG/10 ML VIAL INJ IV SCH ×2 (09:27→21:38)
[2023-05-19] MEDS: levoFLOXacin 500MG 100 ML IV SCH (09:27)
[2023-05-19] MEDS: methylPREDNISolone SOD SUCC 40 MG/ML VL IV SCH ×2 (09:27→21:38)
[2023-05-19] MEDS: hydrALAZINE HCL 25 MG TAB PO SCH ×2 (09:28→21:39)
[2023-05-19] MEDS: SODIUM CHLOR 0.9% PF (SALINE LOCK) 10ML VIAL/SYR IV SCH ×2 (09:28→21:38)
[2023-05-19] MEDS: dilTIAZem 120MG ER CAP PO SCH (09:28)
[2023-05-19] MEDS: MULTIPLE VITAMIN TAB PO SCH (09:28)
[2023-05-19] MEDS: POTASSIUM CHL 20 Meq TABLET PO SCH (09:29)
[2023-05-19] MEDS: LOSARTAN POTASSIUM 50 MG TAB PO SCH (09:29)
[2023-05-19] MEDS: NOREPINEPHRINE 8 MG/250ML KIT 250 ML IV SCH (12:00)
[2023-05-19] MEDS: SODIUM FERR GLUC 62.5MG/5ML 125 MG in SODIUM CHL 0.9% 100 ML IV SCH (12:21)
[2023-05-19] MEDS ORDERED: SODIUM BICARBONATE 8.4 % INJ 50ML VIAL IV ONE (19:00)
[2023-05-19] MEDS: ATORVASTATIN 20 MG TAB PO SCH (21:38)
[2023-05-20] VITALS (96 sets, daily range): BP systolic 103–187; BP diastolic 45–90; PULSE 70–115; RESP 16–33; TEMP 90.5–99.9; O2SAT 94–100
[2023-05-20] MEDS: ALBUTEROL SULF 2.5 MG/0.5ML(0.5%) NEB SOLN NEB SCH ×2 (02:20→06:06)
[2023-05-20] MEDS: IPRATROPIUM BROM 0.5 MG/2.5ML INH SOL NEB SCH ×6 (02:20→22:10)
[2023-05-20 03:48] LABS: Basophils # (auto) 0 10 ^3/uL (0-0.2); Basophils % (auto) 0.1 % (0.0-2.0); Eosinophils # (auto) 0 10 ^3/uL (0-0.8); Hemoglobin 11.8 g/dL (12.2-16.2); Lymphocytes # (auto) 0.3 10 ^3/uL (0.4-5.4); Monocytes # (auto) 0.4 10 ^3/uL (0-1.3); Neutrophils # (auto) 5.3 10 ^3/uL (1.6-8.6); White Blood Cell 5.9 10^3/uL (4.4-10.8)
[2023-05-20 03:51] LABS: Hematocrit 34.9 % (36.0-46.0); Lymphocytes % (auto) 4.7 % (10.0-50.0); Mean Corpuscular Hemoglobin 34.2 pg (28.0-32.0); Mean Corpuscular Hgb Conc. 33.8 g/dL (32.0-36.0); Mean Corpuscular Volume 101.2 fL (80.0-100.0); Monocytes % (auto) 6.2 % (0.0-12.0); Nucleated Red Blood Cells % 0.2 %; Red Blood Cells 3.45 10^6/uL (4.0-5.20)
[2023-05-20 04:11] LABS: Alanine Aminotransferase 32 U/L (7-40); Albumin 3.9 g/dL (3.2-4.8); Alkaline Phosphatase 129 U/L (46-116); Anion Gap 10 (5-15); Aspartate Aminotransferase 36 U/L (13-40); BUN/Creatinine Ratio 28.6 (10.0-20.0); Blood Urea Nitrogen 36 mg/dL (9-23); Calcium 8.7 mg/dL (8.7-10.4); Carbon Dioxide 26 mmol/L (20-30); Chloride 108 mmol/L (98-107); Glucose 148 mg/dL (74-106); Potassium 4.3 mmol/L (3.5-5.1); Sodium 144 mmol/L (136-145)
[2023-05-20 04:12] LABS: Bilirubin, Total 0.4 mg/dL (0.2-1.0); Total Protein 6.2 g/dL (5.7-8.2)
[2023-05-20] MEDS: FUROSEMIDE 40 MG/4 ML VIAL IV SCH ×2 (05:52→17:43)
[2023-05-20] MEDS: dilTIAZem 120MG ER CAP PO SCH (09:33)
[2023-05-20] MEDS: LEVALBUTEROL HCL 1.25 MG/3 ML NEB NEB SCH ×4 (09:45→22:10)
[2023-05-20] MEDS: BUDESONIDE (INHALATION) 0.5 MG/2 ML NEB NEB SCH ×2 (09:45→18:41)
[2023-05-20] MEDS: PANTOPRAZOLE 40 MG/10 ML VIAL INJ IV SCH ×2 (09:46→21:47)
[2023-05-20] MEDS: levoFLOXacin 500MG 100 ML IV SCH (09:46)
[2023-05-20] MEDS: methylPREDNISolone SOD SUCC 40 MG/ML VL IV SCH ×2 (09:47→21:47)
[2023-05-20] MEDS: MULTIPLE VITAMIN TAB PO SCH (09:47)
[2023-05-20] MEDS: LOSARTAN POTASSIUM 50 MG TAB PO SCH (09:47)
[2023-05-20] MEDS: POTASSIUM CHL 20 Meq TABLET PO SCH (09:52)
[2023-05-20] MEDS: SODIUM CHLOR 0.9% PF (SALINE LOCK) 10ML VIAL/SYR IV SCH ×2 (09:53→21:48)
[2023-05-20] MEDS: hydrALAZINE HCL 25 MG TAB PO SCH ×2 (09:54→21:48)
[2023-05-20] MEDS: fentaNYL Drip 2500mCg/250mlNS 250 ML IV SCH (10:15)
[2023-05-20] MEDS ORDERED: LIDOCAINE 2% JELLY 11ml (GLYDO) ONE ×2 (11:13→11:59)
[2023-05-20] MEDS ORDERED: EPINEPHrine HCL 1 MG/1 ML AMP ONE (11:14)
[2023-05-20] MEDS ORDERED: LIDOCAINE 2%HCL (LOCAL ANESTH.) INJ 20ML MDV ONE (11:14)
[2023-05-20] MEDS ORDERED: GLYCOPYRROLATE 0.2 MG/ML 1ML VIAL ONE (11:14)
[2023-05-20] MEDS ORDERED: fentaNYL CITRATE 100 MCG/2 ML VL ONE (11:16)
[2023-05-20] MEDS ORDERED: SODIUM CHLORIDE LOCK 10 ML ONE (11:24)
[2023-05-20] MEDS ORDERED: SODIUM CHLORIDE LOCK 20 ML ONE (11:49)
[2023-05-20] MEDS: NOREPINEPHRINE 8 MG/250ML KIT 250 ML IV SCH (12:00)
[2023-05-20] MEDS: SODIUM FERR GLUC 62.5MG/5ML 125 MG in SODIUM CHL 0.9% 100 ML IV SCH (12:00)
[2023-05-20] MEDS: MIDAZOLAM HCL 5 MG/ML-1ML VIAL ONE ×3 (12:32→12:38)
[2023-05-20] MEDS ORDERED: ROCURONIUM 10MG/ML 10ML VIAL IV ONE ×2 (12:37→13:00)
[2023-05-20] MEDS: hydrALAZINE HCL 20 MG/ML VL IV PRN (15:52)
[2023-05-20] MEDS: PROPOFOL 100 ML IV SCH ×2 (17:15→19:32)
[2023-05-20] MEDS: MIDAZOLAM DRIP 50 mg/50mL 50 ML IV SCH (17:45)
[2023-05-20] MEDS: ATORVASTATIN 20 MG TAB PO SCH (21:48)
[2023-05-21] VITALS (92 sets, daily range): BP systolic 85–168; BP diastolic 37–84; PULSE 75–108; RESP 16–42; TEMP 97.9–100.2; O2SAT 91–100
[2023-05-21] MEDS: PROPOFOL 100 ML IV SCH (01:29)
[2023-05-21] MEDS: LEVALBUTEROL HCL 1.25 MG/3 ML NEB NEB SCH ×6 (02:27→22:05)
[2023-05-21] MEDS: IPRATROPIUM BROM 0.5 MG/2.5ML INH SOL NEB SCH ×6 (02:27→22:05)
[2023-05-21 04:23] LABS: Basophils # (auto) 0 10 ^3/uL (0-0.2); Eosinophils # (auto) 0 10 ^3/uL (0-0.8); Hemoglobin 12.3 g/dL (12.2-16.2); Lymphocytes # (auto) 0.7 10 ^3/uL (0.4-5.4); Neutrophils # (auto) 6.5 10 ^3/uL (1.6-8.6); White Blood Cell 7.7 10^3/uL (4.4-10.8)
[2023-05-21 04:26] LABS: Hematocrit 36.9 % (36.0-46.0); Lymphocytes % (auto) 8.5 % (10.0-50.0); Mean Corpuscular Hemoglobin 33.7 pg (28.0-32.0); Mean Corpuscular Hgb Conc. 33.4 g/dL (32.0-36.0); Mean Corpuscular Volume 100.9 fL (80.0-100.0); Monocytes # (auto) 0.6 10 ^3/uL (0-1.3); Monocytes % (auto) 7.4 % (0.0-12.0); Neutrophils % (auto) 84.1 % (37.0-80.0); Red Blood Cells 3.66 10^6/uL (4.0-5.20); Red Cell Distribution Width 15.4 % (11.8-14.3)
[2023-05-21 04:38] LABS: Alanine Aminotransferase 30 U/L (7-40); Albumin 4.2 g/dL (3.2-4.8); Alkaline Phosphatase 128 U/L (46-116); Anion Gap 13 (5-15); Aspartate Aminotransferase 27 U/L (13-40); BUN/Creatinine Ratio 34.7 (10.0-20.0); Bilirubin, Total 0.4 mg/dL (0.2-1.0); Blood Urea Nitrogen 42 mg/dL (9-23); Calcium 9.2 mg/dL (8.7-10.4); Carbon Dioxide 27 mmol/L (20-30); Chloride 109 mmol/L (98-107); Glucose 147 mg/dL (74-106); Magnesium 2.6 mg/dL (1.6-2.6); Potassium 3.8 mmol/L (3.5-5.1); Total Protein 6.6 g/dL (5.7-8.2)
[2023-05-21 05:00] LABS: Sodium 149 mmol/L (136-145)
[2023-05-21] MEDS: FUROSEMIDE 40 MG/4 ML VIAL IV SCH ×2 (05:20→17:24)
[2023-05-21] MEDS: BUDESONIDE (INHALATION) 0.5 MG/2 ML NEB NEB SCH ×2 (06:16→17:56)
[2023-05-21 09:16] LABS: Base Excess 5.4 mmol/L (-2.0-2.0)
[2023-05-21] MEDS: MULTIPLE VITAMIN TAB PO SCH (09:32)
[2023-05-21] MEDS: LOSARTAN POTASSIUM 50 MG TAB PO SCH (09:33)
[2023-05-21] MEDS: SODIUM CHLOR 0.9% PF (SALINE LOCK) 10ML VIAL/SYR IV SCH ×2 (09:33→22:21)
[2023-05-21] MEDS: hydrALAZINE HCL 25 MG TAB PO SCH ×2 (09:33→22:00)
[2023-05-21] MEDS: methylPREDNISolone SOD SUCC 40 MG/ML VL IV SCH ×2 (09:33→22:21)
[2023-05-21] MEDS: POTASSIUM CHL 20 Meq TABLET PO SCH (09:34)
[2023-05-21] MEDS: dilTIAZem 120MG ER CAP PO SCH (09:34)
[2023-05-21] MEDS: PANTOPRAZOLE 40 MG/10 ML VIAL INJ IV SCH ×2 (09:34→22:21)
[2023-05-21] MEDS: levoFLOXacin 500MG 100 ML IV SCH (09:34)
[2023-05-21] MEDS: fentaNYL Drip 2500mCg/250mlNS 250 ML IV SCH (10:15)
[2023-05-21 11:34] LABS: Base Excess 4.4 mmol/L (-2.0-2.0)
[2023-05-21] MEDS: NOREPINEPHRINE 8 MG/250ML KIT 250 ML IV SCH (12:00)
[2023-05-21] MEDS: SODIUM FERR GLUC 62.5MG/5ML 125 MG in SODIUM CHL 0.9% 100 ML IV SCH (12:00)
[2023-05-21] MEDS: LORazepam 2MG/ML-1ML VIAL IV PRN ×3 (13:47→22:25)
[2023-05-21] MEDS ORDERED: D5W 5% 1,000 ML IV ONE (14:45)
[2023-05-21] MEDS ORDERED: MORPHINE SULFATE INJ 2 MG/ml SYRG IV PRN (15:00)
[2023-05-21] MEDS: ATORVASTATIN 20 MG TAB PO SCH (22:00)
[2023-05-22] VITALS (34 sets, daily range): BP systolic 90–175; BP diastolic 39–70; PULSE 77–103; RESP 17–38; TEMP 88.3–99.4; O2SAT 93–100
[2023-05-22] MEDS: LEVALBUTEROL HCL 1.25 MG/3 ML NEB NEB SCH ×2 (02:05→06:00)
[2023-05-22] MEDS: IPRATROPIUM BROM 0.5 MG/2.5ML INH SOL NEB SCH ×4 (02:05→18:18)
[2023-05-22 04:11] LABS: Hemoglobin 12.2 g/dL (12.2-16.2); Mean Corpuscular Hemoglobin 33.2 pg (28.0-32.0); Mean Corpuscular Hgb Conc. 32.9 g/dL (32.0-36.0); Mean Corpuscular Volume 100.9 fL (80.0-100.0); Red Blood Cells 3.66 10^6/uL (4.0-5.20); Red Cell Distribution Width 15.8 % (11.8-14.3); White Blood Cell 8.1 10^3/uL (4.4-10.8)
[2023-05-22 04:36] LABS: Alanine Aminotransferase 30 U/L (7-40); Alkaline Phosphatase 125 U/L (46-116); Anion Gap 11 (5-15); BUN/Creatinine Ratio 37.7 (10.0-20.0); Blood Urea Nitrogen 43 mg/dL (9-23); Calcium 9.3 mg/dL (8.7-10.4); Carbon Dioxide 28 mmol/L (20-30); Chloride 107 mmol/L (98-107); Glucose 187 mg/dL (74-106); Potassium 3.3 mmol/L (3.5-5.1); Sodium 146 mmol/L (136-145)
[2023-05-22 04:37] LABS: Albumin 4.2 g/dL (3.2-4.8); Aspartate Aminotransferase 26 U/L (13-40); Bilirubin, Total 0.4 mg/dL (0.2-1.0)
[2023-05-22 04:38] LABS: Total Protein 6.6 g/dL (5.7-8.2)
[2023-05-22 04:52] LABS: Band Neutrophils % (manual) 0; Basophils % (manual) 0 (0.0-2.0); Blast Cells 0; Eosinophils % (manual) 0 (0-7); Metamyelocytes % 0; Reactive Lymphocytes 0
[2023-05-22] MEDS: FUROSEMIDE 40 MG/4 ML VIAL IV SCH ×2 (05:28→18:09)
[2023-05-22] MEDS: BUDESONIDE (INHALATION) 0.5 MG/2 ML NEB NEB SCH (06:00)
[2023-05-22] MEDS: hydrALAZINE HCL 20 MG/ML VL IV PRN (06:26)
[2023-05-22] MEDS: LORazepam 2MG/ML-1ML VIAL IV PRN ×2 (06:26→10:44)
[2023-05-22] MEDS ORDERED: POTASSIUM CHL 20MEQ/100ML 100 ML IV ONE ×2 (07:00→07:30)
[2023-05-22] MEDS ORDERED: methylPREDNISolone SOD SUCC 40 MG/ML VL IV SCH (07:30)
[2023-05-22] MEDS ORDERED: FUROSEMIDE 40 MG/4 ML VIAL IV ONE (08:45)
[2023-05-22] MEDS ORDERED: ALBUTEROL SULF 2.5 MG/0.5ML(0.5%) NEB SOLN NEB ONE (08:45)
[2023-05-22 09:08] LABS: Base Excess 5.6 mmol/L (-2.0-2.0)
[2023-05-22 09:32] LABS: Lymphocytes % (manual) 9 (10.0-50.0); Monocytes % (manual) 4 (0-12); Myelocytes % 3; Promyelocytes % 1
[2023-05-22 09:33] LABS: Platelet Estimate Adequate
[2023-05-22] MEDS: dilTIAZem 120MG ER CAP PO SCH (10:00)
[2023-05-22] MEDS: MULTIPLE VITAMIN TAB PO SCH (10:00)
[2023-05-22] MEDS: POTASSIUM CHL 20 Meq TABLET PO SCH (10:00)
[2023-05-22] MEDS: hydrALAZINE HCL 25 MG TAB PO SCH (10:00)
[2023-05-22] MEDS: LOSARTAN POTASSIUM 50 MG TAB PO SCH (10:00)
[2023-05-22] MEDS: levoFLOXacin 500MG 100 ML IV SCH (10:38)
[2023-05-22] MEDS: PANTOPRAZOLE 40 MG/10 ML VIAL INJ IV SCH (10:39)
[2023-05-22] MEDS: SODIUM CHLOR 0.9% PF (SALINE LOCK) 10ML VIAL/SYR IV SCH (11:14)
[2023-05-22] MEDS ORDERED: LEVALBUTEROL HCL 1.25 MG/3 ML NEB NEB SCH (12:00)
[2023-05-22] MEDS: SODIUM FERR GLUC 62.5MG/5ML 125 MG in SODIUM CHL 0.9% 100 ML IV SCH (12:31)
[2023-05-22] MEDS ORDERED: D5W 5% 1,000 ML IV SCH (12:45)
[2023-05-22] MEDS: methylPREDNISolone SOD SUCC 40 MG/ML VL IV SCH ×2 (14:07→18:09)
[2023-05-22] MEDS: ALBUTEROL SULF 2.5 MG/0.5ML(0.5%) NEB SOLN NEB SCH ×2 (14:14→18:18)
== END 2023-05-22 20:53 | disposition hospice, inpatient (51) | DRG 208 ==
LOC: EDSEX 20:31 → EDBD 20:31 → ER 20:31 → TELE 05-16 01:07 → ICU WEST 05-16 01:07 → ICU CENTRL 05-22 13:18
PROVIDERS: ADMIT Internal Medicine; ATTEND Internal Medicine
PROC: 5A1945Z Respiratory Ventilation, 24-96 Consecutive Hours (ICD-10-PCS; principal; 2023-05-18)
PROC: 02HV33Z Insertion of Infusion Device into Superior Vena Cava, Percutaneous Approach (ICD-10-PCS; 2023-05-18)
PROC: 0BH17EZ Insertion of Endotracheal Airway into Trachea, Via Natural or Artificial Opening (ICD-10-PCS; 2023-05-18)
PROC: B548ZZA Ultrasonography of Superior Vena Cava, Guidance (ICD-10-PCS; 2023-05-18)
PROC: 0B9D8ZX Drainage of Right Middle Lung Lobe, Via Natural or Artificial Opening Endoscopic, Diagnostic (ICD-10-PCS; 2023-05-20)
PROC: 0B998ZZ Drainage of Lingula Bronchus, Via Natural or Artificial Opening Endoscopic (ICD-10-PCS; 2023-05-20)
PROC: 0B9B8ZZ Drainage of Left Lower Lobe Bronchus, Via Natural or Artificial Opening Endoscopic (ICD-10-PCS; 2023-05-20)
PROC: 5A09357 Assistance with Respiratory Ventilation, Less than 24 Consecutive Hours, Continuous Positive Airway Pressure (ICD-10-PCS; 2023-05-22)
DX: J96.21 Acute and chronic respiratory failure with hypoxia (principal); J18.9 Pneumonia, unspecified organism; I50.33 Acute on chronic diastolic (congestive) heart failure; N17.0 Acute kidney failure with tubular necrosis; J44.1 Chronic obstructive pulmonary disease with (acute) exacerbation; J44.0 Chronic obstructive pulmonary disease with (acute) lower respiratory infection; N17.9 Acute kidney failure, unspecified; Z20.822 Contact with and (suspected) exposure to COVID-19; Z66 Do not resuscitate; E78.5 Hyperlipidemia, unspecified; I11.0 Hypertensive heart disease with heart failure; D63.8 Anemia in other chronic diseases classified elsewhere; E53.8 Deficiency of other specified B group vitamins; Z80.0 Family history of malignant neoplasm of digestive organs; Z80.1 Family history of malignant neoplasm of trachea, bronchus and lung; Z82.49 Family history of ischemic heart disease and other diseases of the circulatory system; Z83.511 Family history of glaucoma
CPT/HCPCS: 36415; 36569; 36600; 71045; 76775; 80048; 80053; 80307; 80320; 81001; 82306; 82570; 82607; 82805; 83036; 83540; 83550; 83605; 83735; 83880; 83970; 84156; 84300; 84443; 84484; 85007; 85025; 85027; 85379; 85610; 85730; 86141; 87040; 87070; 87081; 87086; 87205; 87426; 87804; 93005; 93306; 93886; 94002; 94003; 94640; 94644; 94660; 96365; 96366; 96368; 96375; 96376; 99291; C9113; G0378; J0171; J0330; J1100; J1956; J2250; J2543; J2704; J3480; J7060